=== PATIENT | male | born 1950 | race Caucasian/White ===

== ENCOUNTER 2020-08-17 09:01 | Outpatient (REF) | payer OTHER, MEDICARE, SELFPAY ==
[2020-08-17 11:35] LABS: Estimated Average Glucose 154 mg/dL; Microalbum/Creatinine Ratio Ur 8.7 ug/mg cr
[2020-08-17 11:56] LABS: Alanine Aminotransferase 21 U/L (0-40); Albumin Level 4.5 g/dL (3.5-5.0); Alkaline Phosphatase 38 U/L (39-117); Anion Gap 12 (12-20); Aspartate Amino Transferase 23 U/L (5-37); Bilirubin Total 0.4 mg/dL (0.0-1.0); Blood Urea Nitrogen 23 mg/dL (9-16); Carbon Dioxide 29 mmol/L (22-29); Chloride 106 mmol/L (96-108); Cholesterol 136 mg/dL; Estimated Glomerular Filt Rate 59; Glucose Fasting 134 mg/dL (60-99); HDL Cholesterol 33 mg/dL; LDL Cholesterol Calculated 76 mg/dl; Potassium 4.7 mmol/l (3.3-5.1); Sodium 142 mmol/L (135-145); Triglycerides 135 mg/dL
== END 2020-08-17 09:02 | disposition home or self-care (01) ==
LOC: HO.HMGCLDS 09:01
PROVIDERS: PCP Internal Medicine; Visit Provider Internal Medicine
DX: E55.9 Vitamin D deficiency, unspecified (principal); E78.2 Mixed hyperlipidemia; F41.9 Anxiety disorder, unspecified; E11.9 Type 2 diabetes mellitus without complications; I25.5 Ischemic cardiomyopathy; I10 Essential (primary) hypertension
CPT/HCPCS: 80053; 80061; 82043; 83036

== ENCOUNTER 2021-07-14 09:10 | Outpatient (REF) | payer OTHER, MEDICARE, SELFPAY ==
[2021-07-14 11:44] LABS: Hematocrit 40.9 % (42-52); Hemoglobin 13.5 g/dl (14.0-18.0); Mean Corpuscular Hemoglobin 28.8 pg (27.0-33.0); Mean Corpuscular Volume 87.4 fL (80-98); Platelet Count 220 X10*3/uL (160-400); Red Blood Count 4.68 X10*6/uL (4.60-5.80); White Blood Count 5.4 X10*3/uL (4.8-10.8)
[2021-07-14 12:02] LABS: Estimated Average Glucose 197 mg/dL; Hemoglobin A1c % 8.5 %
[2021-07-14 12:11] LABS: Creatinine Urine 141.66 mg/dL; Microalbum/Creatinine Ratio Ur 76.2 ug/mg cr
[2021-07-14 12:16] LABS: Alanine Aminotransferase 21 U/L (0-40); Albumin Level 4.4 g/dL (3.5-5.0); Alkaline Phosphatase 43 U/L (39-117); Anion Gap 14 (12-20); Aspartate Amino Transferase 27 U/L (5-37); Bilirubin Total 0.5 mg/dL (0.0-1.0); Blood Urea Nitrogen 26 mg/dL (9-16); Calcium 9.7 mg/dL (8.4-10.2); Carbon Dioxide 28 mmol/L (22-29); Chloride 105 mmol/L (96-108); Cholesterol 137 mg/dL; Estimated Glomerular Filt Rate 49; Glucose Fasting 131 mg/dL (60-99); HDL Cholesterol 29 mg/dL; LDL Cholesterol Calculated 77 mg/dl; Potassium 4.5 mmol/L (3.3-5.1); Sodium 142 mmol/L (135-145); Total Protein 7.1 g/dL (6.5-8.0); Triglycerides 158 mg/dL
[2021-07-14 12:40] LABS: Folate 12.3 ng/mL (> or = 4.0); Vitamin B12 188 pg/mL (200-900)
== END 2021-07-14 09:11 | disposition home or self-care (01) ==
LOC: HO.HMGCLDS 09:10
PROVIDERS: PCP Internal Medicine; Visit Provider Internal Medicine
DX: I25.10 Atherosclerotic heart disease of native coronary artery without angina pectoris (principal); K21.9 Gastro-esophageal reflux disease without esophagitis; E11.9 Type 2 diabetes mellitus without complications; I10 Essential (primary) hypertension; E78.5 Hyperlipidemia, unspecified
CPT/HCPCS: 36415; 80053; 80061; 82043; 82607; 82746; 83036; 85027

== ENCOUNTER → 2021-08-11 09:08 | Outpatient (BNVA) | payer OTHER, MEDICARE, SELFPAY | PROVIDERS: PCP Internal Medicine; Referring Provider Internal Medicine; Visit Provider Surgery ==

== ENCOUNTER 2021-10-20 09:12 | Outpatient (REF) | payer OTHER, MEDICARE, SELFPAY ==
[2021-10-20 11:32] LABS: Hematocrit 40.8 % (42.0-52.0); Hemoglobin 13.5 g/dl (14.0-18.0); Mean Corpuscular HGB Conc 33.1 g/dl (31.0-36.0); Mean Corpuscular Hemoglobin 29.3 pg (27.0-33.0); Mean Corpuscular Volume 88.5 fL (80.0-98.0); Mean Platelet Volume 10.3 fL (9.4-12.4); Platelet Count 218 X10*3/uL (160-400); Red Blood Count 4.61 X10*6/uL (4.60-5.80); White Blood Count 7.1 X10*3/uL (4.8-10.8)
[2021-10-20 11:40] LABS: Estimated Average Glucose 174 mg/dL; Hemoglobin A1c % 7.7 %
[2021-10-20 12:04] LABS: Alanine Aminotransferase 24 U/L (0-40); Albumin Level 4.4 g/dL (3.5-5.0); Alkaline Phosphatase 44 U/L (39-117); Anion Gap 12 (12-20); Aspartate Amino Transferase 22 U/L (5-37); Bilirubin Total 0.4 mg/dL (0.0-1.0); Blood Urea Nitrogen 35 mg/dL (9-16); Calcium 10.4 mg/dL (8.4-10.2); Carbon Dioxide 30 mmol/L (22-29); Chloride 106 mmol/L (96-108); Cholesterol 154 mg/dL; Estimated Glomerular Filt Rate 40; Glucose Fasting 128 mg/dL (60-99); HDL Cholesterol 31 mg/dL; LDL Cholesterol Calculated 80 mg/dl; Potassium 4.7 mmol/L (3.3-5.1); Sodium 143 mmol/L (135-145); Total Protein 7.1 g/dL (6.5-8.0); Triglycerides 219 mg/dL
== END 2021-10-20 09:13 | disposition home or self-care (01) ==
LOC: HO.HMGCLDS 09:12
PROVIDERS: PCP Internal Medicine; Visit Provider Internal Medicine
DX: E11.9 Type 2 diabetes mellitus without complications (principal); E78.5 Hyperlipidemia, unspecified; I10 Essential (primary) hypertension; I25.10 Atherosclerotic heart disease of native coronary artery without angina pectoris
CPT/HCPCS: 36415; 80053; 80061; 83036; 85027

== ENCOUNTER 2022-01-07 15:15 | Outpatient (REF) | payer OTHER, MEDICARE, SELFPAY ==
[2022-01-07 16:47] LABS: Anion Gap 12 (12-20); Blood Urea Nitrogen 31 mg/dL (9-16); Calcium 10.3 mg/dL (8.4-10.2); Carbon Dioxide 30 mmol/L (22-29); Chloride 104 mmol/L (96-108); Estimated Glomerular Filt Rate 46; Glucose Random 113 mg/dL (60-115); Potassium 4.6 mmol/L (3.3-5.1); Sodium 141 mmol/L (135-145)
[2022-01-07 17:23] LABS: Folate 13.2 ng/mL (> or = 4.0); Vitamin B12 541 pg/mL (200-900)
== END 2022-01-07 15:16 | disposition home or self-care (01) ==
LOC: HO.HMGCLDS 15:15
PROVIDERS: Internal Medicine; Visit Provider Physician Assistant Medical
DX: I25.5 Ischemic cardiomyopathy (principal); I10 Essential (primary) hypertension
CPT/HCPCS: 36415; 80048; 82607; 82746

== ENCOUNTER 2022-03-24 08:52 | Outpatient (REF) | payer MEDICARE, SELFPAY ==
[2022-03-24 11:33] LABS: Hematocrit 41.3 % (42.0-52.0); Hemoglobin 13.1 g/dl (14.0-18.0); Mean Corpuscular HGB Conc 31.7 g/dl (31.0-36.0); Mean Corpuscular Hemoglobin 28.5 pg (27.0-33.0); Mean Corpuscular Volume 89.8 fL (80.0-98.0); Mean Platelet Volume 10.3 fL (9.4-12.4); Platelet Count 205 X10*3/uL (160-400); Red Cell Distribution Width 14.2 % (11.0-16.0); White Blood Count 5.3 X10*3/uL (4.8-10.8)
[2022-03-24 11:41] LABS: Estimated Average Glucose 163 mg/dL; Hemoglobin A1c % 7.3 %
[2022-03-24 11:47] LABS: Alanine Aminotransferase 22 U/L (0-40); Albumin Level 4.3 g/dL (3.5-5.0); Alkaline Phosphatase 37 U/L (39-117); Anion Gap 14 (12-20); Aspartate Amino Transferase 24 U/L (5-37); Bilirubin Total 0.5 mg/dL (0.0-1.0); Blood Urea Nitrogen 28 mg/dL (9-16); Calcium 9.5 mg/dL (8.4-10.2); Carbon Dioxide 24 mmol/L (22-29); Chloride 110 mmol/L (96-108); Cholesterol 139 mg/dL; Estimated Glomerular Filt Rate 51; Glucose Fasting 121 mg/dL (60-99); HDL Cholesterol 31 mg/dL; LDL Cholesterol Calculated 76 mg/dl; Potassium 4.7 mmol/L (3.3-5.1); Sodium 143 mmol/L (135-145); Triglycerides 162 mg/dL
[2022-03-24 12:01] LABS: Creatinine Urine 156.68 mg/dL; Microalbum/Creatinine Ratio Ur 24.8 ug/mg cr
== END 2022-03-24 08:53 | disposition home or self-care (01) ==
LOC: HO.HMGCLDS 08:52
PROVIDERS: PCP Internal Medicine; Visit Provider Internal Medicine
DX: E11.9 Type 2 diabetes mellitus without complications (principal); E78.5 Hyperlipidemia, unspecified; I10 Essential (primary) hypertension
CPT/HCPCS: 36415; 80053; 80061; 82043; 83036; 85027

== ENCOUNTER 2022-06-09 13:57 | Outpatient (REF) | payer MEDICARE, SELFPAY ==
[2022-06-09 16:25] LABS: MANUAL DIFF FLAG NO
[2022-06-09 16:29] LABS: Basophils Percent Auto 0.7 % (0-2); Eosinophils Absolute Auto 0.2 X10*3/uL (0.0-0.4); Hematocrit 36.1 % (42.0-52.0); Hemoglobin 11.8 g/dl (14.0-18.0); Imm Gran Abs Auto 0.02 X10*3/uL (0.00-0.03); Imm Gran Pct Auto 0.4 % (0.0-0.4); Lymphocytes Absolute Auto 1.5 X10*3/uL (1.2-4.9); Lymphocytes Percent Auto 27.2 % (20-40); Mean Corpuscular HGB Conc 32.7 g/dl (31.0-36.0); Mean Corpuscular Volume 85.5 fL (80.0-98.0); Mean Platelet Volume 9.8 fL (9.4-12.4); Monocytes Absolute Auto 0.6 X10*3/uL (0.1-1.2); Monocytes Percent Auto 9.7 % (2-11); Neutrophils Absolute Auto 3.4 x10*3/uL (2.0-8.3); Platelet Count 193 X10*3/uL (160-400); Red Blood Count 4.22 X10*6/uL (4.60-5.80); Red Cell Distribution Width 15.3 % (11.0-16.0); White Blood Count 5.7 X10*3/uL (4.8-10.8)
[2022-06-09 16:38] LABS: Anion Gap 15 (12-20); Blood Urea Nitrogen 39 mg/dL (9-16); Calcium 9.3 mg/dL (8.4-10.2); Carbon Dioxide 27 mmol/L (22-29); Chloride 102 mmol/L (96-108); Estimated Glomerular Filt Rate 39; Glucose Random 215 mg/dL (60-115); Potassium 4.3 mmol/L (3.3-5.1); Sodium 140 mmol/L (135-145)
[2022-06-09 16:53] LABS: B Type Natriuretic Peptide 171 pg/mL (<100)
== END 2022-06-09 13:58 | disposition home or self-care (01) ==
LOC: HO.HMGCLDS 13:57
PROVIDERS: PCP Internal Medicine; Visit Provider Internal Medicine
DX: I25.10 Atherosclerotic heart disease of native coronary artery without angina pectoris (principal); I25.5 Ischemic cardiomyopathy; E11.9 Type 2 diabetes mellitus without complications
CPT/HCPCS: 36415; 80048; 83880; 85025

== ENCOUNTER 2022-07-15 08:22 | Outpatient (REF) | payer MEDICARE, SELFPAY ==
[2022-07-15 12:50] LABS: Creatinine Urine 93.81 mg/dL; Estimated Average Glucose 157 mg/dL; Hemoglobin A1c % 7.1 %; Microalbum/Creatinine Ratio Ur 11.7 ug/mg cr; TSH reflex Free T4 1.14 uIU/mL (0.32-4.0)
[2022-07-15 13:04] LABS: Alanine Aminotransferase 28 U/L (0-40); Albumin Level 4.6 g/dL (3.5-5.0); Alkaline Phosphatase 51 U/L (39-117); Anion Gap 22 (12-20); Aspartate Amino Transferase 32 U/L (5-37); Bilirubin Total 0.5 mg/dL (0.0-1.0); Blood Urea Nitrogen 38 mg/dL (9-16); Calcium 10.1 mg/dL (8.4-10.2); Carbon Dioxide 22 mmol/L (22-29); Chloride 104 mmol/L (96-108); Cholesterol 155 mg/dL; Estimated Glomerular Filt Rate 36; Glucose Fasting 175 mg/dL (60-99); HDL Cholesterol 32 mg/dL; LDL Cholesterol Calculated 90 mg/dl; Potassium 4.4 mmol/L (3.3-5.1); Sodium 144 mmol/L (135-145); Total Protein 7.6 g/dL (6.5-8.0); Triglycerides 166 mg/dL
[2022-07-15 13:16] LABS: Folate 9.7 ng/mL (> or = 4.0); Vitamin B12 849 pg/mL (200-900)
== END 2022-07-15 08:23 | disposition home or self-care (01) ==
LOC: HO.HMGCLDS 08:22
PROVIDERS: PCP Internal Medicine; Visit Provider Internal Medicine
DX: E11.9 Type 2 diabetes mellitus without complications (principal); E78.5 Hyperlipidemia, unspecified; I10 Essential (primary) hypertension; R41.3 Other amnesia
CPT/HCPCS: 36415; 80053; 80061; 82043; 82607; 82746; 83036; 84443

== ENCOUNTER 2022-08-16 13:01 | Outpatient (REF) | payer MEDICARE, SELFPAY ==
[2022-08-16 14:36] LABS: Anion Gap 16 (12-20); Blood Urea Nitrogen 36 mg/dL (9-16); Calcium 9.9 mg/dL (8.4-10.2); Carbon Dioxide 28 mmol/L (22-29); Chloride 102 mmol/L (96-108); Estimated Glomerular Filt Rate 40; Glucose Random 185 mg/dL (60-115); Potassium 4.5 mmol/L (3.3-5.1); Sodium 141 mmol/L (135-145)
== END 2022-08-16 13:02 | disposition home or self-care (01) ==
LOC: HO.HMGCLDS 13:01
PROVIDERS: PCP Internal Medicine; Referring Provider Internal Medicine; Visit Provider Nurse Practitioner Gerontology
DX: I25.5 Ischemic cardiomyopathy (principal); E78.5 Hyperlipidemia, unspecified
CPT/HCPCS: 36415; 80048

== ENCOUNTER 2022-10-03 12:18 | Outpatient (REF) | payer MEDICARE, SELFPAY ==
[2022-10-03 16:55] LABS: Appearance Urine Clear; Color Urine Yellow; Glucose Urine UA >=1000 mg/dL (Negative); Leukocyte Esterase Urine Negative (Negative); Nitrite Urine Negative (Negative); PH 5.5 (5.0-9.0); UMIC TRIGGER UA YES; Urine Blood Negative (Negative); Urine Ketones Negative (Negative); Urine Protein Negative (Neg-Trace)
[2022-10-03 16:58] LABS: Bacteria Urine None Seen (None Seen); Hyaline Casts Urine 0-2 /LPF (0-2); RBC Urine 0-2 /HPF (0-2); Squamous Epithelial Cell Urine 0-2 /HPF (0-2); WBC Urine 0-5 /HPF (0-5)
[2022-10-03 17:19] LABS: Alanine Aminotransferase 20 U/L (0-40); Albumin Level 4.5 g/dL (3.5-5.0); Alkaline Phosphatase 57 U/L (39-117); Anion Gap 13 (12-20); Aspartate Amino Transferase 26 U/L (5-37); Bilirubin Total 0.4 mg/dL (0.0-1.0); Blood Urea Nitrogen 36 mg/dL (9-16); Calcium 10.1 mg/dL (8.4-10.2); Carbon Dioxide 32 mmol/L (22-29); Chloride 99 mmol/L (96-108); Estimated Glomerular Filt Rate 37; Glucose Random 223 mg/dL (60-115); Potassium 5.1 mmol/L (3.3-5.1); Sodium 139 mmol/L (135-145); Total Protein 7.4 g/dL (6.5-8.0)
[2022-10-04 05:16] LABS: Estimated Average Glucose 229 mg/dL; Hemoglobin A1c % 9.6 %
== END 2022-10-03 12:19 | disposition home or self-care (01) ==
LOC: HO.CHCLDS 12:18
PROVIDERS: Visit Provider Internal Medicine
DX: I25.10 Atherosclerotic heart disease of native coronary artery without angina pectoris (principal); I25.5 Ischemic cardiomyopathy; E11.9 Type 2 diabetes mellitus without complications; R30.0 Dysuria
CPT/HCPCS: 36415; 80053; 81001; 83036; 87086

== ENCOUNTER 2022-10-27 12:24 | Outpatient (REF) | payer MEDICARE, SELFPAY ==
[2022-10-27 14:17] LABS: Mean Corpuscular HGB Conc 31.8 g/dl (31.0-36.0); Mean Corpuscular Hemoglobin 26.5 pg (27.0-33.0); Mean Corpuscular Volume 83.2 fL (80.0-98.0); Mean Platelet Volume 10.5 fL (9.4-12.4); Platelet Count 209 X10*3/uL (160-400); Red Blood Count 5.29 X10*6/uL (4.60-5.80); Red Cell Distribution Width 14.8 % (11.0-16.0); White Blood Count 7.4 X10*3/uL (4.8-10.8)
[2022-10-27 16:51] LABS: Anion Gap 12 (12-20); Blood Urea Nitrogen 32 mg/dL (9-16); Calcium 9.7 mg/dL (8.4-10.2); Carbon Dioxide 30 mmol/L (22-29); Chloride 103 mmol/L (96-108); Estimated Glomerular Filt Rate 40; Glucose Random 152 mg/dL (60-115); Potassium 4.4 mmol/L (3.3-5.1); Sodium 141 mmol/L (135-145)
== END 2022-10-27 12:25 | disposition home or self-care (01) ==
LOC: HO.HMGCLDS 12:24
PROVIDERS: Absent Provider Internal Medicine Hypertension Specialist; PCP Internal Medicine; Visit Provider Internal Medicine Cardiovascular Disease
DX: N18.31 Chronic kidney disease, stage 3a (principal); I25.5 Ischemic cardiomyopathy
CPT/HCPCS: 36415; 80048; 85027

== ENCOUNTER 2022-10-28 08:54 | Outpatient (REF) | payer MEDICARE, SELFPAY ==
[2022-10-28 11:58] LABS: Cholesterol 146 mg/dL; HDL Cholesterol 32 mg/dL; LDL Cholesterol Calculated 73 mg/dl; Triglycerides 205 mg/dL
== END 2022-10-28 08:55 | disposition home or self-care (01) ==
LOC: HO.HMGCLDS 08:54
PROVIDERS: PCP Internal Medicine; Visit Provider Nurse Practitioner Gerontology
DX: I25.5 Ischemic cardiomyopathy (principal); E78.5 Hyperlipidemia, unspecified
CPT/HCPCS: 36415; 80061

== ENCOUNTER 2022-12-09 09:02 | Outpatient (REF) | payer MEDICARE, SELFPAY ==
[2022-12-09 11:52] LABS: Estimated Average Glucose 214 mg/dL; Hemoglobin A1c % 9.1 %
== END 2022-12-09 09:03 | disposition home or self-care (01) ==
LOC: HO.HMGCLDS 09:02
PROVIDERS: PCP Internal Medicine; Visit Provider Nurse Practitioner Gerontology
DX: E11.51 Type 2 diabetes mellitus with diabetic peripheral angiopathy without gangrene (principal)
CPT/HCPCS: 36415; 83036

== ENCOUNTER 2023-01-03 12:31 | Outpatient (REF) | payer MEDICARE, SELFPAY ==
[2023-01-03 13:50] LABS: MANUAL DIFF FLAG NO
[2023-01-03 13:56] LABS: Basophils Absolute Auto 0.1 X10*3/uL (0.0-0.2); Basophils Percent Auto 0.8 % (0-2); Eosinophils Absolute Auto 0.2 X10*3/uL (0.0-0.4); Eosinophils Percent Auto 2.9 % (0-4); Hematocrit 43.8 % (42.0-52.0); Hemoglobin 14.3 g/dl (14.0-18.0); Imm Gran Abs Auto 0.02 X10*3/uL (0.00-0.03); Imm Gran Pct Auto 0.3 % (0.0-0.4); Lymphocytes Absolute Auto 1.3 X10*3/uL (1.2-4.9); Lymphocytes Percent Auto 18.7 % (20-40); Mean Corpuscular HGB Conc 32.6 g/dl (31.0-36.0); Mean Corpuscular Volume 82.6 fL (80.0-98.0); Mean Platelet Volume 9.7 fL (9.4-12.4); Monocytes Absolute Auto 0.9 X10*3/uL (0.1-1.2); Neutrophils Absolute Auto 4.7 x10*3/uL (2.0-8.3); Neutrophils Percent Auto 65.3 % (45-73); Platelet Count 237 X10*3/uL (160-400); Red Cell Distribution Width 14.7 % (11.0-16.0); White Blood Count 7.2 X10*3/uL (4.8-10.8)
[2023-01-03 14:06] LABS: Prothrombin Time 10.9 SEC (10.0-13.1)
[2023-01-03 14:35] LABS: Anion Gap 16 (12-20); Blood Urea Nitrogen 30 mg/dL (9-16); Calcium 9.4 mg/dL (8.4-10.2); Carbon Dioxide 23 mmol/L (22-29); Chloride 106 mmol/L (96-108); Estimated Glomerular Filt Rate 46; Glucose Random 199 mg/dL (60-115); Potassium 4.4 mmol/L (3.3-5.1); Sodium 141 mmol/L (135-145)
== END 2023-01-03 12:32 | disposition home or self-care (01) ==
LOC: HO.HMGCLDS 12:31
PROVIDERS: PCP Internal Medicine; Visit Provider Internal Medicine Cardiovascular Disease
DX: Z01.818 Encounter for other preprocedural examination (principal); I25.5 Ischemic cardiomyopathy; E11.51 Type 2 diabetes mellitus with diabetic peripheral angiopathy without gangrene; I50.23 Acute on chronic systolic (congestive) heart failure
CPT/HCPCS: 36415; 80048; 85025; 85610

== ENCOUNTER → 2023-02-02 11:07 | Outpatient (BNVA) | payer MEDICARE, SELFPAY | PROVIDERS: PCP Internal Medicine; Visit Provider Surgery | DX: K42.9 Umbilical hernia without obstruction or gangrene (principal) | CPT/HCPCS: 99212 ==

== ENCOUNTER 2023-02-06 08:32 | Outpatient (REF) | payer MEDICARE, SELFPAY ==
[2023-02-06 11:17] LABS: MANUAL DIFF FLAG NO
[2023-02-06 11:44] LABS: Basophils Absolute Auto 0.1 X10*3/uL (0.0-0.2); Basophils Percent Auto 0.9 % (0-2); Eosinophils Absolute Auto 0.2 X10*3/uL (0.0-0.4); Eosinophils Percent Auto 3.1 % (0-4); Hematocrit 43.9 % (42.0-52.0); Hemoglobin 14.4 g/dl (14.0-18.0); Imm Gran Abs Auto 0.04 X10*3/uL (0.00-0.03); Imm Gran Pct Auto 0.5 % (0.0-0.4); Lymphocytes Absolute Auto 1.6 X10*3/uL (1.2-4.9); Lymphocytes Percent Auto 21.4 % (20-40); Mean Corpuscular HGB Conc 32.8 g/dl (31.0-36.0); Mean Corpuscular Hemoglobin 27.8 pg (27.0-33.0); Mean Corpuscular Volume 84.7 fL (80.0-98.0); Mean Platelet Volume 9.8 fL (9.4-12.4); Monocytes Percent Auto 12.4 % (2-11); Neutrophils Absolute Auto 4.7 x10*3/uL (2.0-8.3); Neutrophils Percent Auto 61.7 % (45-73); Platelet Count 237 X10*3/uL (160-400); Red Blood Count 5.18 X10*6/uL (4.60-5.80); Red Cell Distribution Width 14.1 % (11.0-16.0); White Blood Count 7.7 X10*3/uL (4.8-10.8)
[2023-02-06 11:45] LABS: Estimated Average Glucose 189 mg/dL; Hemoglobin A1c % 8.2 %
[2023-02-06 12:01] LABS: Alanine Aminotransferase 25 U/L (0-40); Albumin Level 4.5 g/dL (3.5-5.0); Alkaline Phosphatase 56 U/L (39-117); Anion Gap 14 (12-20); Aspartate Amino Transferase 24 U/L (5-37); Bilirubin Total 0.6 mg/dL (0.0-1.0); Blood Urea Nitrogen 52 mg/dL (9-16); Calcium 9.8 mg/dL (8.4-10.2); Carbon Dioxide 27 mmol/L (22-29); Chloride 103 mmol/L (96-108); Estimated Glomerular Filt Rate 34; Glucose Fasting 199 mg/dL (60-99); Potassium 4.9 mmol/L (3.3-5.1); Sodium 139 mmol/L (135-145); Total Protein 7.3 g/dL (6.5-8.0)
== END 2023-02-06 08:33 | disposition home or self-care (01) ==
LOC: HO.HMGCLDS 08:32
PROVIDERS: PCP Internal Medicine; Visit Provider Internal Medicine
DX: I25.5 Ischemic cardiomyopathy (principal); E11.9 Type 2 diabetes mellitus without complications; I10 Essential (primary) hypertension
CPT/HCPCS: 36415; 80053; 83036; 85025

== ENCOUNTER 2023-03-20 09:18 | Outpatient (REF) | payer MEDICARE, SELFPAY ==
[2023-03-20 11:30] LABS: Appearance Urine Clear; Color Urine Yellow; Glucose Urine UA >=1000 mg/dL (Negative); Leukocyte Esterase Urine Negative (Negative); Nitrite Urine Negative (Negative); PH 5.5 (5.0-9.0); Specific Gravity - Urine 1.025 (1.005-1.025); UMIC TRIGGER UA YES; Urine Blood Negative (Negative); Urine Ketones Negative (Negative); Urine Protein Negative (Neg-Trace)
[2023-03-20 11:35] LABS: Bacteria Urine None Seen (None Seen); Hyaline Casts Urine 0-2 /LPF (0-2); RBC Urine 0-2 /HPF (0-2); Squamous Epithelial Cell Urine 0-2 /HPF (0-2); WBC Urine 0-5 /HPF (0-5)
[2023-03-20 11:53] LABS: Anion Gap 11 (12-20); Blood Urea Nitrogen 34 mg/dL (9-16); Carbon Dioxide 30 mmol/L (22-29); Chloride 107 mmol/L (96-108); Estimated Glomerular Filt Rate 49; Glucose Random 210 mg/dL (60-115); Potassium 4.7 mmol/L (3.3-5.1); Sodium 143 mmol/L (135-145)
[2023-03-20 11:54] LABS: Alanine Aminotransferase 22 U/L (0-40); Albumin Level 4.1 g/dL (3.5-5.0); Alkaline Phosphatase 71 U/L (39-117); Anion Gap 10 (12-20); Aspartate Amino Transferase 25 U/L (5-37); Bilirubin Total 0.4 mg/dL (0.0-1.0); Blood Urea Nitrogen 35 mg/dL (9-16); Calcium 9.9 mg/dL (8.4-10.2); Carbon Dioxide 31 mmol/L (22-29); Chloride 107 mmol/L (96-108); Estimated Glomerular Filt Rate 49; Glucose Fasting 209 mg/dL (60-99); Potassium 4.6 mmol/L (3.3-5.1); Sodium 143 mmol/L (135-145); Total Protein 6.9 g/dL (6.5-8.0)
[2023-03-20 12:13] LABS: Creatinine Urine 102.27 mg/dL; Protein/Creatinine Ratio, Ur 0.11 (<0.2); Total Protein Urine Random 11 mg/dL (<12)
== END 2023-03-20 09:19 | disposition home or self-care (01) ==
LOC: HO.HMGCLDS 09:18
PROVIDERS: Internal Medicine Hypertension Specialist; PCP Internal Medicine; Visit Provider Internal Medicine
DX: N18.32 Chronic kidney disease, stage 3b (principal)
CPT/HCPCS: 36415; 80048; 80053; 81001; 84156

== ENCOUNTER 2023-06-20 08:37 | Outpatient (REF) | payer MEDICARE, SELFPAY ==
[2023-06-20 11:24] LABS: MANUAL DIFF FLAG NO
[2023-06-20 11:28] LABS: Basophils Absolute Auto 0.1 X10*3/uL (0.0-0.2); Basophils Percent Auto 0.8 % (0-2); Eosinophils Absolute Auto 0.2 X10*3/uL (0.0-0.4); Hematocrit 43.6 % (42.0-52.0); Hemoglobin 14.2 g/dl (14.0-18.0); Imm Gran Abs Auto 0.02 X10*3/uL (0.00-0.03); Imm Gran Pct Auto 0.3 % (0.0-0.4); Lymphocytes Absolute Auto 1.9 X10*3/uL (1.2-4.9); Lymphocytes Percent Auto 28.8 % (20-40); Mean Corpuscular HGB Conc 32.6 g/dl (31.0-36.0); Mean Corpuscular Hemoglobin 27.8 pg (27.0-33.0); Mean Corpuscular Volume 85.5 fL (80.0-98.0); Mean Platelet Volume 9.8 fL (9.4-12.4); Monocytes Absolute Auto 0.9 X10*3/uL (0.1-1.2); Monocytes Percent Auto 14.1 % (2-11); Neutrophils Absolute Auto 3.5 x10*3/uL (2.0-8.3); Platelet Count 240 X10*3/uL (160-400); White Blood Count 6.6 X10*3/uL (4.8-10.8)
[2023-06-20 12:21] LABS: Alanine Aminotransferase 27 U/L (0-40); Albumin Level 4.3 g/dL (3.5-5.0); Alkaline Phosphatase 43 U/L (39-117); Anion Gap 13 (12-20); Aspartate Amino Transferase 36 U/L (5-37); Bilirubin Total 0.5 mg/dL (0.0-1.0); Blood Urea Nitrogen 39 mg/dL (9-16); Calcium 9.9 mg/dL (8.4-10.2); Carbon Dioxide 27 mmol/L (22-29); Chloride 104 mmol/L (96-108); Cholesterol 154 mg/dL (<200); Estimated Glomerular Filt Rate 35; Glucose Fasting 93 mg/dL (60-99); HDL Cholesterol 35 mg/dL (>40); LDL Cholesterol Calculated 79 mg/dL (<100); Potassium 4.3 mmol/L (3.3-5.1); Sodium 140 mmol/L (135-145); Total Protein 7.4 g/dL (6.5-8.0); Triglycerides 201 mg/dL (<150)
[2023-06-20 12:31] LABS: Estimated Average Glucose 163 mg/dL; Hemoglobin A1c % 7.3 % (<6.0)
[2023-06-20 12:53] LABS: Creatinine Urine 155.87 mg/dL; Microalbum/Creatinine Ratio Ur 8.9 ug/mg cr (<30)
[2023-06-20 15:43] LABS: Folate 7.4 ng/mL (> or = 4.0); Vitamin B12 > 2000 pg/mL (200-900)
== END 2023-06-20 08:38 | disposition home or self-care (01) ==
LOC: HO.HMGCLDS 08:37
PROVIDERS: PCP Internal Medicine; Visit Provider Internal Medicine
DX: N18.30 Chronic kidney disease, stage 3 unspecified (principal); I25.5 Ischemic cardiomyopathy; E11.9 Type 2 diabetes mellitus without complications; I25.10 Atherosclerotic heart disease of native coronary artery without angina pectoris; E78.5 Hyperlipidemia, unspecified; I10 Essential (primary) hypertension
CPT/HCPCS: 36415; 80053; 80061; 82043; 82570; 82607; 82746; 83036; 85025

== ENCOUNTER 2023-06-22 11:07 | Outpatient (AMB) | payer MEDICARE, SELFPAY ==
[2023-06-22 11:18] VITALS: BP 106/64; PULSE 80; O2SAT 97; BMI 29.1
--- NOTE | 2023-06-22 11:18 | A.OFFPC_ITS ---
Vital Signs 06/22/23 11:18 Height 5 ft 7 in Weight 186 lb BMI 29.1 BP 106/64 Blood Pressure Location Lt brachial Position Sitting Pulse 80 Pulse Source Pulse Oximeter Pulse Oximetry (%) 97 Oxygen Delivery Method Room Air Intake Visit Reasons: 3 month follow up Intake Note: Pt is here today for 3 months follow up visit on DM. Pt states that he has been having problem with his stomach lately. Pt also states that yesterday and this morning when he was urinating he had burning sensation. Allergies bee pollen [Bee Stings] Allergy (Mild, Verified 06/22/23 11:21) SWELLING ibuprofen [From Motrin] Allergy (Mild, Verified 06/22/23 11:21) RASH Medication List - Last Reconciled 06/22/23 by Lyric Witt MD aspirin 81 mg PO DAILY blood sugar diagnostic (FreeStyle Lite Strips) test blood sugar twice a day bupropion HCl 150 mg PO DAILY carvedilol 25 mg (2 x 12.5 mg) PO BID 90 days cholecalciferol (vitamin D3) 25 mcg PO DAILY cyanocobalamin (vitamin B-12) 1,000 mcg PO DAILY dapagliflozin propanediol (Farxiga) 10 mg PO DAILY donepezil 5 mg PO DAILY doxycycline hyclate 100 mg PO BID dulaglutide (Trulicity) 3 mg (0.5 mL) subcut QWEEK fenofibrate nanocrystallized 145 mg PO BEDTIME flash glucose scanning reader (OneMedNetStyle Izabel 2 [place]) To test blood sugar flash glucose sensor (FreeStyle Izabel 2 Sensor kit) As directed to test blood sugar 4-6 times per day furosemide TAKE 1 TABLET BY MOUTH DAILY insulin degludec (Tresiba FlexTouch U-100 insulin) 46 UNITS subcutaneously bedtime; lancets (FreeStyle Lancets) test blood sugar twice a day nitroglycerin (Nitrostat) 0.4 mg sublingual Q5M PRN pantoprazole 20 mg PO BEDTIME paroxetine HCl 30 mg PO BEDTIME prasugrel 10 mg PO DAILY ranolazine ER 500 mg PO BID rosuvastatin 40 mg PO DAILY sacubitril-valsartan 24-26 mg (Entresto) 1 tab PO BID spironolactone 25 mg PO DAILY ticagrelor (Brilinta) 90 mg PO BID Tobacco use date assessed: 06/22/23 Dental Screening Dental Screen Date: 06/22/23 Did you have a dental visit in the last 12 months?: Yes Did you have a dental problem in the last 6 months where you did not have access to dental care?: No Was dental information given to patient?: Patient has dentist HPI 3 month follow up HPI Details Patient presents for the follow-up of type 2 diabetes, heart failure with reduced ejection fraction, chronic kidney disease stage 4. Patient reports constipation and increased gas and bloating. He denies hematochezia melena. [facility] Medical History Memory loss Dehydration Umbilical hernia Obstructive sleep apnea Depression Hypertension Hyperlipidemia Diabetes DALI on CPAP Ischemic cardiomyopathy CAD (coronary artery disease) Surgical History Hx of LASIK History of carpal tunnel release of both wrists History of cardiac cath History of total left knee replacement History of implantable cardiac defibrillator (ICD) History of colonoscopy Family History Father Lung cancer Diabetes mellitus HTN (hypertension) CVD (cardiovascular disease) Mother Stroke CVD (cardiovascular disease) History of heart attack Mental health disorder Brother No problems noted. Brother Alcoholic Sister No problems noted. Son No problems noted. Daughter No problems noted. Daughter No problems noted. Social History Household Members: Spouse Housing: House Are you a primary home care consultant to a significant other at home: No Do you presently have visiting nurse or other home services: No Alcohol intake: current Alcohol intake frequency: 0-2 drinks per day Alcohol type: beer Patient Tobacco Use Status: Former Tobacco user Quit Date: 2015 Tobacco use type: Cigarette e-Cigarette/Vaping Use: Never Used Current occupational status: retired Cognitive needs: No Hearing needs: Yes Vision needs: No Questionnaire Thrive Questionnaire Date Thrive assessed: 11/01/22 GHAZALA-7 AMB Questionnaire GHAZALA-7 Date GHAZALA - 7 assessed: 11/01/22 Source: Developed by Drs. Kian García, Carola Campos, Mamadou Pearson and colleagues, with an educational trenton from [employer]. Review of Systems Const All systems reviewed & are unremarkable except as noted in HPI and below Reports no additional complaints Eyes Reports no additional complaints ENT Reports no additional complaints Card Reports no additional complaints Resp Reports no additional complaints GI Reports no additional complaints Physical exam (Primary Care) Vital Signs: Last Vital Signs Pulse 80 06/22/23 11:18 BP 106/64 06/22/23 11:18 Pulse Ox 97 06/22/23 11:18 Oxygen Delivery Method Room Air 06/22/23 11:18 BMI result Body Mass Index 29.1 Tobacco/Smoking Status: Tobacco use Status Tobacco use date assessed 06/22/23 06/22/23 11:24 Patient Tobacco Use Status Former Tobacco user 06/22/23 11:24 Tobacco use type Cigarette 06/22/23 11:24 e-Cigarette/Vaping Use Never Used 06/22/23 11:24 Thrive Assessment: Date of Thrive Assessment Date Thrive assessed 11/01/22 06/22/23 11:24 Const General: no acute distress HENMT Head: Yes normal to inspection Mouth: Normal oral and palatal mucosa present Eyes General: appearance normal, both eyes and all related structures Resp Effort & Inspection: normal respiratory effort Auscultation: clear to auscultation bilaterally Cardio Rhythm: regular rhythm Heart sounds: S1 normal heart sound present and S2 normal heart sound present GI Inspection: Yes normal to inspection Palpation (GI): Soft to palpation Percussion: Yes normal to percussion Auscultation: normal bowel sounds Extrem General: Yes no clubbing, cyanosis or edema Assessment and Plan Assessment & Plan (1) Ischemic cardiomyopathy: Comment: f/u Cardiology at [facility], Echo 04/06 EF 30% Code(s): I25.5 - Ischemic cardiomyopathy Plan: Continue current medications and follow-up with Cardiology (2) Diabetes: Code(s): E11.9 - Type 2 diabetes mellitus without complications Plan: A1c is down to 7.3, ADA diet increase exercise discussed with the patient. Humalog according to sliding scale 3 times a day before meals will be added and patient will continue same medications. follow-up in 3 months with a fasting labs before (3) Dysuria: Code(s): R30.0 - Dysuria Plan: Check urine culture (4) CKD (chronic kidney disease) stage 3, GFR 30-59 ml/min: Code(s): N18.30 - Chronic kidney disease, stage 3 unspecified Plan: Monitor renal function avoid NSAIDs and continue Farxiga (5) Hypertension: Code(s): I10 - Essential (primary) hypertension Plan: Continue current medications (6) Hyperlipidemia: Code(s): E78.5 - Hyperlipidemia, unspecified Plan: Continue statin and fenofibrate Orders: Orders Comprehensive [place]. Panel Fast 3 Months E11.9 - Type 2 diabetes mellitus without complications, I25.5 - Ischemic cardiomyopathy, N18.30 - Chronic kidney disease, stage 3 unspecified Microalbumin, Random (w Creat) 3 Months E11.9 - Type 2 diabetes mellitus without complications, I25.5 - Ischemic cardiomyopathy, N18.30 - Chronic kidney disease, stage 3 unspecified Hemoglobin A1c 3 Months E11.9 - Type 2 diabetes mellitus without complications, I25.5 - Ischemic cardiomyopathy, N18.30 - Chronic kidney disease, stage 3 unspec ified Lipid Panel 3 Months E11.9 - Type 2 diabetes mellitus without complications, I25.5 - Ischemic cardiomyopathy, N18.30 - Chronic kidney disease, stage 3 unspecified B Type Natriuretic Peptide 3 Months E11.9 - Type 2 diabetes mellitus without complications, I25.5 - Ischemic cardiomyopathy, N18.30 - Chronic kidney disease, stage 3 unspecified Urine Culture Today R30.0 - Dysuria Medications: New docusate sodium (Colace) 100 mg PO BID 180 caps 2RF insulin lispro (Humalog KwikPen (U-100) Insulin) 10 u for BS >150 10 units (0.1 mL) subcut TID 45 mL 1RF Coding Level of Care Code Est Pt Level 4 (98122) Diagnoses Ischemic cardiomyopathy I25.5 Diabetes E11.9 Dysuria R30.0 CKD (chronic kidney disease) stage 3, GFR 30-59 ml/min N18.30 Hypertension I10 Hyperlipidemia E78.5
== END 2023-06-22 12:11 | disposition home or self-care (01) ==
PROVIDERS: PCP Internal Medicine; Visit Provider Internal Medicine
DX: E11.22 Type 2 diabetes mellitus with diabetic chronic kidney disease (principal); N18.30 Chronic kidney disease, stage 3 unspecified; I25.5 Ischemic cardiomyopathy; I12.9 Hypertensive chronic kidney disease with stage 1 through stage 4 chronic kidney disease, or unspecified chronic kidney disease; R30.0 Dysuria; E78.5 Hyperlipidemia, unspecified
CPT/HCPCS: 99214

== ENCOUNTER 2023-06-22 11:55 | Outpatient (REF) | payer MEDICARE, SELFPAY | END 2023-06-22 11:56 | disposition home or self-care (01) | LOC: HO.HMGCLDS 11:55 | PROVIDERS: PCP Internal Medicine; Visit Provider Internal Medicine | DX: R30.0 Dysuria (principal) | CPT/HCPCS: 87086 ==

== ENCOUNTER 2023-07-12 12:24 | Outpatient (AMB) | payer MEDICARE, SELFPAY ==
[2023-07-12 12:29] VITALS: BP 112/64; PULSE 76; O2SAT 98; BMI 29.3
--- NOTE | 2023-07-12 12:29 | A.OFFPC_ITS ---
Vital Signs 07/12/23 12:29 Height 5 ft 7 in Weight 187 lb BMI 29.3 BP 112/64 Blood Pressure Location Lt brachial Position Sitting Pulse 76 Pulse Source Pulse Oximeter Pulse Oximetry (%) 98 Oxygen Delivery Method Room Air Intake Visit Reasons: Discuss Sugar Levels Intake Note: Pt is here today for a follow up visit on DM. Allergies bee pollen [Bee Stings] Allergy (Mild, Verified 07/12/23 12:32) SWELLING ibuprofen [From Motrin] Allergy (Mild, Verified 07/12/23 12:32) RASH Medication List - Last Reconciled 07/12/23 by Lyric Witt MD aspirin 81 mg PO DAILY blood sugar diagnostic (FreeStyle Lite Strips) test blood sugar twice a day bupropion HCl 150 mg PO DAILY carvedilol 25 mg (2 x 12.5 mg) PO BID 90 days cholecalciferol (vitamin D3) 25 mcg PO DAILY cyanocobalamin (vitamin B-12) 1,000 mcg PO DAILY dapagliflozin propanediol (Farxiga) 10 mg PO DAILY docusate sodium (Colace) 100 mg PO BID donepezil 5 mg PO DAILY dulaglutide (Trulicity) 3 mg (0.5 mL) subcut QWEEK fenofibrate nanocrystallized 145 mg PO BEDTIME flash glucose scanning reader (QR WildStyle Izabel 2 [place]) To test blood sugar flash glucose sensor (FreeStyle Izabel 2 Sensor kit) As directed to test blood sugar 4-6 times per day furosemide TAKE 1 TABLET BY MOUTH DAILY insulin degludec (Tresiba FlexTouch U-100 insulin) 46 UNITS subcutaneously be dtime; insulin lispro (Humalog KwikPen (U-100) Insulin) 10 units (0.1 mL) subcut TID lancets (FreeStyle Lancets) test blood sugar twice a day nitroglycerin (Nitrostat) 0.4 mg sublingual Q5M PRN pantoprazole 20 mg PO BEDTIME paroxetine HCl 30 mg PO BEDTIME prasugrel 10 mg PO DAILY ranolazine ER 500 mg PO BID rosuvastatin 40 mg PO DAILY sacubitril-valsartan 24-26 mg (Entresto) 1 tab PO BID spironolactone 25 mg PO DAILY ticagrelor (Brilinta) 90 mg PO BID Tobacco use date assessed: 06/22/23 HPI Discuss Sugar Levels HPI Details Patient presents for the follow-up. he reports fluctuating blood glucose in the morning between 80-250. Patient noticed that his blood glucose drops after physical activity. He reports abdominal discomfort decreased appetite and nausea but no vomiting since increase the dose of Trulicity. [facility] Medical History Memory loss Dehydration Umbilical hernia Obstructive sleep apnea Depression Hypertension Hyperlipidemia Diabetes DALI on CPAP Ischemic cardiomyopathy CAD (coronary artery disease) Surgical History Hx of LASIK History of carpal tunnel release of both wrists History of cardiac cath History of total left knee replacement History of implantable cardiac defibrillator (ICD) History of colonoscopy Family History Father Lung cancer Diabetes mellitus HTN (hypertension) CVD (cardiovascular disease) Mother Stroke CVD (cardiovascular disease) History of heart attack Mental health disorder Brother No problems noted. Brother Alcoholic Sister No problems noted. Son No problems noted. Daughter No problems noted. Daughter No problems noted. Social History Household Members: Spouse Housing: House Are you a primary care coordination manager to a significant other at home: No Do you presently have visiting nurse or other home services: No Alcohol intake: current Alcohol intake frequency: 0-2 drinks per day Alcohol type: beer Patient Tobacco Use Status: Former Tobacco user Quit Date: 2015 Tobacco use type: Cigarette e-Cigarette/Vaping Use: Never Used Current occupational status: retired Cognitive needs: No Hearing needs: Yes Vision needs: No Questionnaire Thrive Questionnaire Date Thrive assessed: 11/01/22 GHAZALA-7 AMB Questionnaire GHAZALA-7 Date GHAZALA - 7 assessed: 11/01/22 Source: Developed by Drs. Kian García, Carola Campos, Mamadou Pearson and colleagues, with an educational trenton from [employer]. Review of Systems Const All systems reviewed & are unremarkable except as noted in HPI and below Reports no additional complaints Eyes Reports no additional complaints ENT Reports no additional complaints Card Reports no additional complaints Resp Reports no additional complaints GI Reports no additional complaints Physical exam (Primary Care) Vital Signs: Last Vital Signs Pulse 76 07/12/23 12:29 BP 112/64 07/12/23 12:29 Pulse Ox 98 07/12/23 12:29 Oxygen Delivery Method Room Air 07/12/23 12:29 BMI result Body Mass Index 29.3 Tobacco/Smoking Status: Tobacco use Status Tobacco use date assessed 06/22/23 07/12/23 12:33 Patient Tobacco Use Status Former Tobacco user 07/12/23 12:33 Tobacco use type Cigarette 07/12/23 12:33 e-Cigarette/Vaping Use Never Used 07/12/23 12:33 Thrive Assessment: Date of Thrive Assessment Date Thrive assessed 11/01/22 07/12/23 12:33 Const General: no acute distress Resp Effort & Inspection: normal respiratory effort Auscultation: clear to auscultation bilaterally Cardio Rhythm: regular rhythm Heart sounds: S1 normal heart sound present and S2 normal heart sound present GI Inspection: Yes normal to inspection Palpation (GI): Tenderness to palpation present (GI) in the RUQ; with no rebound tenderness Percussion: Yes normal to percussion Auscultation: normal bowel sounds Assessment and Plan Assessment & Plan (1) Abdominal pain: Comment: RUQ pain Code(s): R10.9 - Unspecified abdominal pain Plan: Obtain abdominal ultrasound to rule gallstones, decrease Trulicity to 1.5 mg (2) Diabetes: Code(s): E11.9 - Type 2 diabetes mellitus without complications Plan: ADA diet regular physical activity discussed with the patient. Trulicity will be lowered to 1.5 mg because of nausea side effect. Patient will continue Tresiba and Humalog before meals with sliding scale. He was advised to record his blood glucose before and after each meal, bedtime, the amount of Humalog the patient takes and food diary. Follow-up in 1 month Orders: Orders US abdomen limited Today R10.9 - Unspecified abdominal pain Medications: New dulaglutide (Trulicity) 1.5 mg (0.5 mL) subcut QWEEK 6 mL 3RF Discontinued dulaglutide (Trulicity) Discontinued Reason: Doctor's Order 3 mg (0.5 mL) subcut QWEEK 6 mL 4RF Coding Level of Care Code Est Pt Level 4 (49545) Diagnoses Abdominal pain R10.9 Diabetes E11.9
== END 2023-07-12 13:34 | disposition home or self-care (01) ==
PROVIDERS: PCP Internal Medicine; Visit Provider Internal Medicine
DX: R10.9 Unspecified abdominal pain (principal); E11.9 Type 2 diabetes mellitus without complications
CPT/HCPCS: 99214

== ENCOUNTER 2023-07-13 09:33 | Outpatient (REF) | payer MEDICARE, SELFPAY ==
--- NOTE | ~2023-07-13 | US_ITS ---
EXAMINATION: US ABDOMEN LIMITED CLINICAL INFORMATION: Unspecified abdominal pain. COMPARISON: Abdominal ultrasound 03/31/2016 TECHNIQUE: Real-time imaging of the right upper quadrant abdominal viscera. FINDINGS: PANCREAS: Normal. LIVER: The liver is normal in size. The liver contour is normal. There is diffuse increased liver parenchymal echogenicity, consistent with hepatic steatosis. No focal hepatic lesion. There is no intrahepatic biliary duct dilatation seen. GALLBLADDER: Thick mobile sludge is seen within the gallbladder. No obvious gallstone is seen. The gallbladder is physiologically distended without evidence of stones, polyps, wall thickening or pericholecystic fluid. COMMON BILE DUCT: Normal in caliber measuring 0.25 cm in diameter. RIGHT KIDNEY: 3.1 x 3.1 x 3.4 cm simple cyst is seen. No imaging follow-up of this finding is recommended. No hydronephrosis. No renal calculi or focal parenchymal lesions. The kidney measures 12.9 cm in maximum dimension. FREE FLUID: None. US/US abdomen limited IMPRESSION: 1. Hepatic steatosis. 2. Thick mobile sludge within the gallbladder without evidence of cholelithiasis.
== END 2023-07-13 09:34 | disposition home or self-care (01) ==
LOC: HO.HMGCX 09:33
PROVIDERS: PCP Internal Medicine; Visit Provider Internal Medicine
DX: R10.9 Unspecified abdominal pain (principal)
CPT/HCPCS: 76705

== ENCOUNTER 2023-07-20 14:04 | Outpatient (AMB) | payer MEDICARE, SELFPAY ==
--- NOTE | 2023-07-20 14:05 | MHC.OFFVIS ---
Intake Intake Visit Reasons: Re-discuss umbilical hernia surgery Intake Note: This patient present for an assessment to re-discuss umbilical hernia repair. Patient c/o; no changes. Hospice Consultant Required: No Accompanied by: Self / Same As Patient Allergies bee pollen [Bee Stings] Allergy (Mild, Verified 07/20/23 14:11) SWELLING ibuprofen [From Motrin] Allergy (Mild, Verified 07/20/23 14:11) RASH HPI Re-discuss umbilical hernia surgery HPI Details 73-year-old male with an umbilical hernia, here to schedule for repair. I have been following him for this since 2020. He had been undergoing workup for his CHF with the administration internship however so he had been putting off his surgery. I had last seen him in the office in January,. He stated that he was ready for umbilical hernia repair and had arrange for him to be seen by his administration internship for final clearance He does state that he seems to periodic pain with his umbilical hernia. He has had a stent placed and a pacemaker done in the past. He had been on Brilinta as well. He has a history of coronary disease, ischemic cardiomyopathy, and chronic kidney disease. [facility] Medical History Memory loss Dehydration Umbilical hernia Obstructive sleep apnea Depression Hypertension Hyperlipidemia Diabetes DALI on CPAP Ischemic cardiomyopathy CAD (coronary artery disease) Surgical History Hx of LASIK History of carpal tunnel release of both wrists History of cardiac cath History of total left knee replacement History of implantable cardiac defibrillator (ICD) History of colonoscopy Family History Father Lung cancer Diabetes mellitus HTN (hypertension) CVD (cardiovascular disease) Mother Stroke CVD (cardiovascular disease) History of heart attack Mental health disorder Brother No problems noted. Brother Alcoholic Sister No problems noted. Son No problems noted. Daughter No problems noted. Daughter No problems noted. Social History Household Members: Spouse Housing: House Are you a primary palliative care specialist to a significant other at home: No Do you presently have visiting nurse or other home services: No Alcohol intake: current Alcohol intake frequency: 0-2 drinks per day Alcohol type: beer Patient Tobacco Use Status: Former Tobacco user Quit Date: 2015 Tobacco use type: Cigarette e-Cigarette/Vaping Use: Never Used Current occupational status: retired Cognitive needs: No Hearing needs: Yes Vision needs: No Review of Systems Const Denies chills and Denies fever(s) Card Denies chest pain, Denies dyspnea and Denies dyspnea on exertion Resp Denies cough, Denies dyspnea and Denies dyspnea on exertion GI Denies hematochezia and Denies change in bowel habits Denies hematuria and Denies difficulty urinating Musc Denies back pain and Denies limited range of motion Neuro Denies focal weakness and Denies convulsions Psych Denies depression and Denies mood swings Physical Exam Const General: comfortable and no acute distress Orientation/consciousness: patient oriented x3 Neck Neck: Yes no lymphadenopathy Resp Auscultation: clear to auscultation bilaterally Cardio Rhythm: regular rhythm GI Other: Umbilical hernia, about 2 cm nontender reducible partially Palpation (GI): Soft to palpation, nontender and no guarding Neuro General: patient oriented x3 Assessment & Plan Assessment & Plan (1) Umbilical hernia: Code(s): K42.9 - Umbilical hernia without obstruction or gangrene (2) CAD (coronary artery disease): Comment: s/p non q wave [place] 2004, follow-up with cardiology Code(s): I25.10 - Atherosclerotic heart disease of [place] coronary artery without angina pectoris Plan: We will need him to be seen and evaluated by his administration internship before proceeding with any surgical intervention. Plan He has an umbilical hernia as described above. He wants to proceed with repair because of his discomfort, pain and tenderness. I reviewed with him the technique of repair with possible mesh placement. I explained the risks including but not limited to bleeding, infections, bowel injury, recurrence, postop pain, heart attack, strokes, as well as the benefits and alternatives. He says he wants to proceed. I reminded him that we will still need to be cleared by his administration internship for repair of his umbilical hernia. I explained to him that he does have significant cardiac history so this will be relevant with regards to his perioperative risks He will call his administration internship with regards to this cardiac eval. He understands that he undergoes surgery, he has told his Brilinta for about 5 days preoperatively. We will also make sure that he undergoes preadmission testing. We will schedule him for this repair of the umbilical hernia once he is cleared. Coding Level of Care Code Est Pt Level 4 (35120) Diagnoses Umbilical hernia K42.9 CAD (coronary artery disease) I25.10
== END 2023-07-20 14:21 | disposition home or self-care (01) ==
PROVIDERS: PCP Internal Medicine; Visit Provider Surgery
DX: K42.9 Umbilical hernia without obstruction or gangrene (principal); I25.10 Atherosclerotic heart disease of native coronary artery without angina pectoris
CPT/HCPCS: 99214

== ENCOUNTER → 2023-07-20 14:04 | Outpatient (BNVA) | payer MEDICARE, SELFPAY | PROVIDERS: PCP Internal Medicine; Visit Provider Surgery | DX: K42.9 Umbilical hernia without obstruction or gangrene (principal); I25.10 Atherosclerotic heart disease of native coronary artery without angina pectoris; I25.2 Old myocardial infarction | CPT/HCPCS: 99212 ==

== ENCOUNTER 2023-08-14 12:32 | Outpatient (AMB) | payer MEDICARE, SELFPAY ==
[2023-08-14 12:34] VITALS: BP 114/60; PULSE 77; O2SAT 100; BMI 29.0
--- NOTE | 2023-08-14 12:34 | A.OFFPC_ITS ---
Vital Signs 08/14/23 12:34 Height 5 ft 7 in Weight 185 lb BMI 29.0 BP 114/60 Blood Pressure Location Lt brachial Position Sitting Pulse 77 Pulse Source Pulse Oximeter Pulse Oximetry (%) 100 Oxygen Delivery Method Room Air Intake Visit Reasons: one month fu Intake Note: Pt is here today for 1 month follow up visit. Allergies bee pollen [Bee Stings] Allergy (Mild, Verified 08/14/23 12:37) SWELLING ibuprofen [From Motrin] Allergy (Mild, Verified 08/14/23 12:37) RASH Medication List - Last Reconciled 08/14/23 by Lyric Witt MD aspirin 81 mg PO DAILY blood sugar diagnostic (FreeStyle Lite Strips) test blood sugar twice a day bupropion HCl 150 mg PO DAILY carvedilol 25 mg (2 x 12.5 mg) PO BID 90 days cholecalciferol (vitamin D3) 25 mcg PO DAILY cyanocobalamin (vitamin B-12) 1,000 mcg PO DAILY dapagliflozin propanediol (Farxiga) 10 mg PO DAILY docusate sodium (Colace) 100 mg PO BID donepezil 5 mg PO DAILY dulaglutide (Trulicity) 1.5 mg (0.5 mL) subcut QWEEK fenofibrate nanocrystallized 145 mg PO BEDTIME flash glucose scanning reader (MelodeoStyle Izabel 2 [place]) To test blood sugar flash glucose sensor (FreeStyle Izabel 2 Sensor kit) As directed to test blood sugar 4-6 times per day furosemide TAKE 1 TABLET IN THE AM, 20 MG IN PM insulin degludec (Tresiba FlexTouch U-100 insulin) 46 UNITS subcutaneously b edtime; insulin lispro (Humalog KwikPen (U-100) Insulin) 10 units (0.1 mL) subcut TID lancets (FreeStyle Lancets) test blood sugar twice a day nitroglycerin (Nitrostat) 0.4 mg sublingual Q5M PRN pantoprazole 20 mg PO BEDTIME paroxetine HCl 30 mg PO BEDTIME prasugrel 10 mg PO DAILY ranolazine ER 500 mg PO BID rosuvastatin 40 mg PO DAILY sacubitril-valsartan 24-26 mg (Entresto) 1 tab PO BID spironolactone 25 mg PO DAILY ticagrelor (Brilinta) 90 mg PO BID Tobacco use date assessed: 06/22/23 HPI one month fu HPI Details Pt c/o chronic L knee pain getting worse for 6 months. Patient had right knee replacement surgery about 10 years ago . He denies any injury or joint swelling. Patient complains of chronic bilateral lateral thighs pain for 2 months worse when laying on either side or when walking longer distance. Type 2 diabetes stable on current medications. [facility] Medical History (Updated 08/14/23 @ 13:38 by Lyric Witt MD) Knee pain, left Memory loss Dehydration Umbilical hernia Obstructive sleep apnea Depression Hypertension Hyperlipidemia Diabetes DALI on CPAP Ischemic cardiomyopathy CAD (coronary artery disease) Surgical History (Updated 08/14/23 @ 13:24 by Lyric Witt MD) Hx of LASIK History of carpal tunnel release of both wrists History of cardiac cath History of total left knee replacement History of implantable cardiac defibrillator (ICD) History of colonoscopy Family History Father Lung cancer Diabetes mellitus HTN (hypertension) CVD (cardiovascular disease) Mother Stroke CVD (cardiovascular disease) History of heart attack Mental health disorder Brother No problems noted. Brother Alcoholic Sister No problems noted. Son No problems noted. Daughter No problems noted. Daughter No problems noted. Social History Household Members: Spouse Housing: House Are you a primary pet care worker to a significant other at home: No Do you presently have visiting nurse or other home services: No Alcohol intake: current Alcohol intake frequency: 0-2 drinks per day Alcohol type: beer Patient Tobacco Use Status: Former Tobacco user Quit Date: 2015 Tobacco use type: Cigarette e-Cigarette/Vaping Use: Never Used Current occupational status: retired Cognitive needs: No Hearing needs: Yes Vision needs: No Questionnaire Thrive Questionnaire Date Thrive assessed: 11/01/22 GHAZALA-7 AMB Questionnaire GHAZALA-7 Date GHAZALA - 7 assessed: 11/01/22 Source: Developed by Drs. Kian García, Carola Camops, Mamadou Pearson and colleagues, with an educational trenton from [employer]. Review of Systems Const All systems reviewed & are unremarkable except as noted in HPI and below Reports no additional complaints Eyes Reports no additional complaints ENT Reports no additional complaints Card Reports no additional complaints Resp Reports no additional complaints GI Reports no additional complaints Reports no additional complaints Physical exam (Primary Care) Vital Signs: Last Vital Signs Pulse 77 08/14/23 12:34 BP 114/60 08/14/23 12:34 Pulse Ox 100 08/14/23 12:34 Oxygen Delivery Method Room Air 08/14/23 12:34 BMI result Body Mass Index 29.0 Tobacco/Smoking Status: Tobacco use Status Tobacco use date assessed 06/22/23 08/14/23 12:34 Patient Tobacco Use Status Former Tobacco user 08/14/23 12:34 Tobacco use type Cigarette 08/14/23 12:34 e-Cigarette/Vaping Use Never Used 08/14/23 12:34 Thrive Assessment: Date of Thrive Assessment Date Thrive assessed 11/01/22 08/14/23 12:34 Const General: no acute distress Resp Effort & Inspection: normal respiratory effort Auscultation: clear to auscultation bilaterally Cardio Rhythm: regular rhythm Heart sounds: S1 normal heart sound present and S2 normal heart sound present GI Inspection: Yes normal to inspection Palpation (GI): Soft to palpation Percussion: Yes normal to percussion Extrem Other: Decreased range of motion of left knee no soft tissue swelling erythema or warmth, reproducible tenderness of bilateral greater trochanteric areas and decreased range of motions of both hips Assessment and Plan Assessment & Plan (1) Hip pain, bilateral: Code(s): M25.551 - Pain in right hip; M25.552 - Pain in left hip Plan: Check x-rays of both hips and referred to orthopedic surgeon, patient requested [facility] (2) Knee pain, left: Code(s): M25.562 - Pain in left knee Plan: REFERRED TO ORTHOPEDICS Orders: Orders XR hip BI w PEL1V Today M25.551 - Pain in right hip, M25.552 - Pain in left hip Referrals Orthopedics Referral M25.551 - Pain in right hip, M25.552 - Pain in left hip, M25.562 - Pain in left knee Medications: Changed From furosemide TAKE 1 TABLET BY MOUTH DAILY 90 tabs 3RF To furosemide TAKE 1 TABLET IN THE AM, 20 MG IN PM Coding Level of Care Code Est Pt Level 3 (15515) Diagnoses Hip pain, bilateral M25.551; M25.552 Knee pain, left M25.562
== END 2023-08-14 14:42 | disposition home or self-care (01) ==
PROVIDERS: PCP Internal Medicine; Visit Provider Internal Medicine
DX: M25.551 Pain in right hip (principal); M25.552 Pain in left hip; M25.562 Pain in left knee
CPT/HCPCS: 99213

== ENCOUNTER 2023-09-15 14:33 | Outpatient (AMB) | payer MEDICARE, SELFPAY ==
[2023-09-15 14:42] VITALS: BP 102/56; PULSE 83; TEMP 36.6; O2SAT 95; BMI 29.0
--- NOTE | 2023-09-15 14:42 | MHC.OFFWIV ---
Intake Vital Signs 09/15/23 14:42 Height 5 ft 7 in Weight 185 lb BMI 29.0 BP 102/56 L Blood Pressure Location Rt brachial Position Sitting Pulse 83 Pulse Source Pulse Oximeter Temp 97.8 F Temp Source Temporal Artery Scan Pulse Oximetry (%) 95 Oxygen Delivery Method Room Air Intake Visit Reasons: EP, sinus congestion, body ache, headache (masked) Intake Note: PT is here today for sinus congestion, body ache, and headache Patient Tobacco Use Status: Former Tobacco user Quit Date: 2015 Allergies bee pollen [Bee Stings] Allergy (Mild, Verified 09/15/23 14:53) SWELLING ibuprofen [From Motrin] Allergy (Mild, Verified 09/15/23 14:53) RASH Do you need a note to return to daycare/school/sports/work: No HPI HPI Comments History of Present Illness Details This is a 73-year-old male who presents to the office today for sick visit. Patient complaining of persistent viral URI symptoms times 10 days. Patient states he tested positive for COVID-19 approximately 10 days ago. He states his symptoms slightly improved but then worsened again. Patient then tested negative for COVID-19 4 days ago. He reports persistent headaches, myalgias, dry cough, sore throat, and nasal/ sinus congestion. [facility] Medical History (Updated 08/14/23 @ 13:38 by Lyric Witt MD) Knee pain, left Memory loss Dehydration Umbilical hernia Obstructive sleep apnea Depression Hypertension Hyperlipidemia Diabetes DALI on CPAP Ischemic cardiomyopathy CAD (coronary artery disease) Surgical History (Updated 08/14/23 @ 13:24 by Lyric Witt MD) Hx of LASIK History of carpal tunnel release of both wrists History of cardiac cath History of total left knee replacement History of implantable cardiac defibrillator (ICD) History of colonoscopy Family History Father Lung cancer Diabetes mellitus HTN (hypertension) CVD (cardiovascular disease) Mother Stroke CVD (cardiovascular disease) History of heart attack Mental health disorder Brother No problems noted. Brother Alcoholic Sister No problems noted. Son No problems noted. Daughter No problems noted. Daughter No problems noted. Social History Household Members: Spouse Housing: House Are you a primary landcare facilitator to a significant other at home: No Do you presently have visiting nurse or other home services: No Alcohol intake: current Alcohol intake frequency: 0-2 drinks per day Alcohol type: beer Patient Tobacco Use Status: Former Tobacco user Quit Date: 2015 Tobacco use type: Cigarette e-Cigarette/Vaping Use: Never Used Current occupational status: retired Cognitive needs: No Hearing needs: Yes Vision needs: No Review of Systems Const All systems reviewed & are unremarkable except as noted in HPI and below Reports no additional complaints Eyes Reports no additional complaints ENT Reports no additional complaints Card Reports no additional complaints Resp Reports no additional complaints GI Reports no additional complaints Reports no additional complaints Musc Reports no additional complaints Skin/Breast Reports system reviewed and no additional complaints, except as documented Neuro Reports no additional complaints Psych Reports no additional complaints Endo Reports no additional complaints Derek/Lymph Reports no additional complaints Aller/Immun Reports no additional complaints Physical Exam Vital Signs: Last Vital Signs Temp 97.8 F 09/15/23 14:42 Pulse 83 09/15/23 14:42 BP 102/56 L 09/15/23 14:42 Pulse Ox 95 09/15/23 14:42 Oxygen Delivery Method Room Air 09/15/23 14:42 BMI result Body Mass Index 29.0 Const Other: Vital signs reviewed. Constitutional: Non-toxic appearing. No acute distress. Well-developed and well-nourished. HEENT: Normocephalic and atraumatic. Tympanic membranes without erythema, edema, or bulging bilaterally. External auditory canals without erythema or edema bilaterally. Moist mucous membranes. No pharyngeal erythema or exudates. Skin: Warm and dry. No rashes or lesions noted. Neck: Full and painless range of motion. No cervical lymphadenopathy. Cardio: Regular rate and rhythm. No murmurs, gallops, or rubs. No lower extremity edema. No JVD. Pulmonary: No respiratory distress. No accessory muscle usage. Clear to auscultation bilaterally without wheezing, crackles, or rhonchi. Gastrointestinal: Soft, nontender, and nondistended in all 4 quadrants. Musculoskeletal: Normal range of motion in joints throughout the body. No deformity or other signs of injury. Neuro: Alert and oriented x4. Cranial nerves 2-12 grossly intact. No focal deficits appreciated. Psych: Normal mood and affect. Assessment & Plan Assessment & Plan (1) Viral URI with cough: Code(s): J06.9 - Acute upper respiratory infection, unspecified Plan: this is a 73-year-old male presenting with persistent/ worsening viral URI symptoms x 10 days. his physical exam was benign, he is overall nontoxic appearing, in his vital signs are stable. History and physical most consistent with an acute viral upper respiratory tract infection. Given patient's report of double worsening symptoms, I will treat with p.o. azithromycin 500 mg today followed by 250 mg daily x4 days. I have sent another COVID/flu/ RSV test. Recommended symptomatic management including rest, increased fluids, advil/tylenol for pain/fever, and over the counter throat lozenges/decongestants. Patient advised to follow up here or go to the emergency room for worsening/persistent symptoms. Patient verbalized understanding and is agreeable with the plan. Orders: Orders SARS-CoV2/FLU/RSV Today R09.89 - Other specified symptoms and signs involving the circulatory and respiratory systems Medications: New azithromycin For 250 mg dose pack: take 500 mg today (day 1), then 250 mg for 4 days (days 2-5) PO 6 tabs 0RF Coding Level of Care Code Est Pt Level 3 (29836) Diagnoses Viral URI with cough J06.9
== END 2023-09-15 15:24 | disposition home or self-care (01) ==
PROVIDERS: PCP Internal Medicine; Visit Provider Physician Assistant Medical
DX: J06.9 Acute upper respiratory infection, unspecified (principal)
CPT/HCPCS: 99213

== ENCOUNTER 2023-09-15 16:50 | Outpatient (REF) | payer MEDICARE, SELFPAY ==
[2023-09-15 17:58] LABS: Influenza A PCR NEGATIVE (Negative); Influenza B PCR NEGATIVE (Negative); Resp Syncy Virus RNA Qual PCR NEGATIVE (Negative); SARS COV2 PCR INHOUSE NEGATIVE (Negative)
== END 2023-09-15 16:51 | disposition home or self-care (01) ==
LOC: HO.LNP 16:50
PROVIDERS: Visit Provider Physician Assistant Medical
DX: Z11.52 Encounter for screening for COVID-19 (principal); R09.89 Other specified symptoms and signs involving the circulatory and respiratory systems; Z20.822 Contact with and (suspected) exposure to COVID-19
CPT/HCPCS: 0241U

== ENCOUNTER 2023-10-05 09:34 | Outpatient (REF) | payer MEDICARE, SELFPAY ==
[2023-10-05 13:19] LABS: MANUAL DIFF FLAG NO
[2023-10-05 13:40] LABS: Basophils Percent Auto 0.3 % (0-2); Eosinophils Absolute Auto 0.2 X10*3/uL (0.0-0.4); Eosinophils Percent Auto 1.7 % (0-4); Hematocrit 40.7 % (42.0-52.0); Imm Gran Abs Auto 0.04 X10*3/uL (0.00-0.03); Imm Gran Pct Auto 0.4 % (0.0-0.4); Lymphocytes Absolute Auto 1.2 X10*3/uL (1.2-4.9); Lymphocytes Percent Auto 11.2 % (20-40); Mean Corpuscular HGB Conc 31.9 g/dl (31.0-36.0); Mean Corpuscular Hemoglobin 27.5 pg (27.0-33.0); Mean Platelet Volume 10.2 fL (9.4-12.4); Monocytes Absolute Auto 0.9 X10*3/uL (0.1-1.2); Monocytes Percent Auto 8.2 % (2-11); Neutrophils Absolute Auto 8.1 x10*3/uL (2.0-8.3); Neutrophils Percent Auto 78.2 % (45-73); Platelet Count 255 X10*3/uL (160-400); Red Blood Count 4.73 X10*6/uL (4.60-5.80); Red Cell Distribution Width 14.9 % (11.0-16.0); White Blood Count 10.4 X10*3/uL (4.8-10.8)
[2023-10-05 13:43] LABS: B Type Natriuretic Peptide 196 pg/mL (<100)
[2023-10-05 13:51] LABS: Anion Gap 11 (12-20); Blood Urea Nitrogen 30 mg/dL (9-16); Calcium 9.8 mg/dL (8.4-10.2); Carbon Dioxide 25 mmol/L (22-29); Chloride 107 mmol/L (96-108); Estimated Glomerular Filt Rate 52; Glucose Random 279 mg/dL (60-115); Potassium 4.7 mmol/L (3.3-5.1); Sodium 138 mmol/L (135-145)
== END 2023-10-05 09:35 | disposition home or self-care (01) ==
LOC: HO.HMGCLDS 09:34
PROVIDERS: PCP Internal Medicine; Visit Provider Nurse Practitioner
DX: I25.5 Ischemic cardiomyopathy (principal)
CPT/HCPCS: 36415; 80048; 83880; 85025

== ENCOUNTER 2023-10-26 11:05 | Outpatient (AMB) | payer MEDICARE, SELFPAY ==
[2023-10-26 11:16] VITALS: BP 114/62; PULSE 84; O2SAT 98; BMI 29.9
--- NOTE | 2023-10-26 11:16 | HO.NEPHOV_ITS ---
HPI HPI Comments History of Present Illness Details 73 yr old man with a h/o long standing HTN and DM and CHF with CKD Baseline creatinien is around 1.5 mg/dL h/o HOA with a peak cr of 1.9 h/o CHF with EF of 25-30 % , now on Entresto s/p CardioMEMS/Right heart catheterization in December 2022 PFS Medical History Knee pain, left Memory loss Dehydration Umbilical hernia Obstructive sleep apnea Depression Hypertension Hyperlipidemia Diabetes DALI on CPAP Ischemic cardiomyopathy CAD (coronary artery disease) Surgical History Hx of LASIK History of carpal tunnel release of both wrists History of cardiac cath History of total left knee replacement History of implantable cardiac defibrillator (ICD) History of colonoscopy Family History Father Lung cancer Diabetes mellitus HTN (hypertension) CVD (cardiovascular disease) Mother Stroke CVD (cardiovascular disease) History of heart attack Mental health disorder Brother No problems noted. Brother Alcoholic Sister No problems noted. Son No problems noted. Daughter No problems noted. Daughter No problems noted. Social History Household Members: Spouse Housing: House Are you a primary career development associate to a significant other at home: No Do you presently have visiting nurse or other home services: No Alcohol intake: current Alcohol intake frequency: 0-2 drinks per day Alcohol type: beer Patient Tobacco Use Status: Former Tobacco user Quit Date: 2015 Tobacco use type: Cigarette e-Cigarette/Vaping Use: Never Used Current occupational status: retired Cognitive needs: No Hearing needs: Yes Vision needs: No Vital Signs 10/26/23 11:16 Height 5 ft 7 in Weight 191 lb BMI 29.9 BP 114/62 Blood Pressure Location Rt brachial Position Sitting Pulse 84 Pulse Source Pulse Oximeter Pulse Oximetry (%) 98 Oxygen Delivery Method Room Air Physical Exam Vital Signs: Last Vital Signs Pulse 84 10/26/23 11:16 BP 114/62 10/26/23 11:16 Pulse Ox 98 10/26/23 11:16 Oxygen Delivery Method Room Air 10/26/23 11:16 BMI result Body Mass Index 29.9 Const General: comfortable Nutritional Appearance: well nourished Orientation/consciousness: patient oriented x3 HEENT Head: No normal to inspection Mouth: moist mucous membranes Eyes General: appearance normal, both eyes and all related structures Visual Espinoza: normal visual espinoza by confrontation Neck Neck: Yes supple and Yes no JVD Resp Effort & Inspection: normal respiratory effort and respiratory effort not decreased Auscultation: clear to auscultation bilaterally, no rales and rub present Cardio Jugular venous distension: no JVD Palpation: no palpable S3 and no palpable S4 Heart sounds: no rubs GI Inspection: Yes normal to inspection Palpation (GI): Soft to palpation and nontender Percussion: No Fluid wave present Auscultation: normal bowel sounds General: Yes no CVA tenderness Back/Spine/Pelvis Back: no CVA tenderness Skin General skin exam: no rashes or lesions noted Neuro General: patient oriented x3 Extrem General: Yes no pedal edema and No clubbing Assessment & Plan Assessment & Plan (1) CKD (chronic kidney disease) stage 3, GFR 30-59 ml/min: Code(s): N18.30 - Chronic kidney disease, stage 3 unspecified Plan CKD in a setting of HTN/DM and CHF NO significant proteinuria Creatinine has improved Goal is slow the progression of kidney disease Agree with FARXIGA Discussed low salt diet Avoid nephrotoxisn including NSAIDS BP is acceptable Goal A1C < 7% Orders: Orders Blood Urea Nitrogen 5 Months N18.30 - Chronic kidney disease, stage 3 unspecified Electrolytes 5 Months N18.30 - Chronic kidney disease, stage 3 unspecified Creatinine 5 Months N18.30 - Chronic kidney disease, stage 3 unspecified Calcium 5 Months N18.30 - Chronic kidney disease, stage 3 unspecified Coding Level of Care Code Est Pt Level 4 (84569) Diagnoses CKD (chronic kidney disease) stage 3, GFR 30-59 ml/min N18.30 Results Reviewed Nephrology Results: Hgb 13.0 g/dl (14.0-18.0) L 10/05/23 WBC 10.4 X10*3/uL (4.8-10.8) 10/05/23 Plt Count 255 X10*3/uL (160-400) 10/05/23 Sodium 138 mmol/L (135-145) 10/05/23 Potassium 4.7 mmol/L (3.3-5.1) 10/05/23 Chloride 107 mmol/L (96-108) 10/05/23 Carbon Dioxide 25 mmol/L (22-29) 10/05/23 BUN 30 mg/dL (9-16) H 10/05/23 Creatinine 1.34 mg/dL (0.5-1.4) 10/05/23 Calcium 9.8 mg/dL (8.4-10.2) 10/05/23 Urine Creatinine 155.87 mg/dL 06/20/23
== END 2023-10-26 11:43 | disposition home or self-care (01) ==
PROVIDERS: PCP Internal Medicine; Visit Provider Internal Medicine Hypertension Specialist
DX: N18.30 Chronic kidney disease, stage 3 unspecified (principal)
CPT/HCPCS: 99214

== ENCOUNTER → 2023-10-26 11:05 | Outpatient (BNVA) | payer MEDICARE, SELFPAY | PROVIDERS: PCP Internal Medicine; Visit Provider Internal Medicine Hypertension Specialist | DX: N18.30 Chronic kidney disease, stage 3 unspecified (principal) | CPT/HCPCS: 99212 ==

== ENCOUNTER 2023-11-24 14:57 | Outpatient (AMB) | payer MEDICARE, SELFPAY ==
[2023-11-24 14:59] VITALS: BP 128/70; PULSE 81; TEMP 36.1; O2SAT 97; BMI 29.6
--- NOTE | 2023-11-24 14:59 | MHC.OFFWIV ---
Intake Vital Signs 11/24/23 14:59 Height 5 ft 7 in Weight 189 lb BMI 29.6 BP 128/70 Blood Pressure Location Lt brachial Position Sitting Pulse 81 Pulse Source Pulse Oximeter Temp 97.0 F Temp Source Temporal Artery Scan Pulse Oximetry (%) 97 Oxygen Delivery Method Room Air Intake Visit Reasons: EP RT hand middle finger infected Intake Note: pt is here today for rt hand middle finger infection started 1 week ago Patient Tobacco Use Status: Former Tobacco user Quit Date: 2015 Allergies bee pollen [Bee Stings] Allergy (Mild, Verified 11/24/23 15:00) SWELLING ibuprofen [From Motrin] Allergy (Mild, Verified 11/24/23 15:00) RASH Do you need a note to return to daycare/school/sports/work: No HPI HPI Comments History of Present Illness Details 73 y/o male patient who presents to walk in clinic with c/o infection right middle finger x 1 week. 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 He is uptodate with Tdap. [facility] Medical History Knee pain, left Memory loss Dehydration Umbilical hernia Obstructive sleep apnea Depression Hypertension Hyperlipidemia Diabetes DALI on CPAP Ischemic cardiomyopathy CAD (coronary artery disease) Surgical History Hx of LASIK History of carpal tunnel release of both wrists History of cardiac cath History of total left knee replacement History of implantable cardiac defibrillator (ICD) History of colonoscopy Family History Father Lung cancer Diabetes mellitus HTN (hypertension) CVD (cardiovascular disease) Mother Stroke CVD (cardiovascular disease) History of heart attack Mental health disorder Brother No problems noted. Brother Alcoholic Sister No problems noted. Son No problems noted. Daughter No problems noted. Daughter No problems noted. Social History Household Members: Spouse Housing: House Are you a primary critical care nurse practitioner to a significant other at home: No Do you presently have visiting nurse or other home services: No Alcohol intake: current Alcohol intake frequency: 0-2 drinks per day Alcohol type: beer Patient Tobacco Use Status: Former Tobacco user Quit Date: 2015 Tobacco use type: Cigarette e-Cigarette/Vaping Use: Never Used Current occupational status: retired Cognitive needs: No Hearing needs: Yes Vision needs: No Review of Systems Const All systems reviewed & are unremarkable except as noted in HPI and below Physical Exam Vital Signs: Last Vital Signs Temp 97.0 F 11/24/23 14:59 Pulse 81 11/24/23 14:59 BP 128/70 11/24/23 14:59 Pulse Ox 97 11/24/23 14:59 Oxygen Delivery Method Room Air 11/24/23 14:59 BMI result Body Mass Index 29.6 Const General: no acute distress Orientation/consciousness: patient oriented x3 Skin Wounds: wounds noted (Right middle finger, infected wound) Neuro General: patient oriented x3 Extrem Right upper extremity: Extremity exam: right hand (Right middle finger with a small cut, infected, swollen and redness) Details: neuromotor exam normal, neurosensory exam normal, tenderness, normal ROM of fingers and swelling Location: of the 3rd digit Left upper extremity: normal to inspection and full ROM Assessment & Plan Assessment & Plan (1) Cellulitis of finger of right hand: Code(s): L03.011 - Cellulitis of right finger Plan: - Keep the area clean, wear gloves when working in garage - Up to date with Tdap (2015) - Acetaminophen for pain relief. Medications: New cephalexin 500 mg PO BID 7 days 14 caps 0RF L03.011 - Cellulitis of right finger Coding Level of Care Code Est Pt Level 3 (02491) Diagnoses Cellulitis of finger of right hand L03.011 Time Spent (min) 15
== END 2023-11-24 15:24 | disposition home or self-care (01) ==
PROVIDERS: PCP Internal Medicine; Visit Provider Nurse Practitioner Family
DX: L03.011 Cellulitis of right finger (principal)
CPT/HCPCS: 99213

== ENCOUNTER 2023-12-05 07:58 | Outpatient (AMB) | payer MEDICARE, SELFPAY ==
[2023-12-05 08:02] VITALS: BP 116/66; PULSE 73; O2SAT 95; BMI 29.0
--- NOTE | 2023-12-05 08:02 | MHC.PC.OV ---
Vital Signs 12/05/23 08:02 Height 5 ft 7 in Weight 185 lb BMI 29.0 BP 116/66 Blood Pressure Location Lt brachial Position Sitting Pulse 73 Pulse Source Pulse Oximeter Pulse Oximetry (%) 95 Oxygen Delivery Method Room Air Intake Visit Reasons: Pre op cataracts surgery 12/13/23 Intake Note: Pt is here today for a pre op visit. Pt is having cataract surgery on 12/13/23. Allergies bee pollen [Bee Stings] Allergy (Mild, Verified 12/05/23 08:21) SWELLING ibuprofen [From Motrin] Allergy (Mild, Verified 12/05/23 08:21) RASH Medication List - Last Reconciled 12/05/23 by Lyric Witt MD aspirin 81 mg PO DAILY blood sugar diagnostic (FreeStyle Lite Strips) test blood sugar twice a day bupropion HCl 150 mg PO DAILY carvedilol 25 mg (2 x 12.5 mg) PO BID 90 days cholecalciferol (vitamin D3) 25 mcg PO DAILY cyanocobalamin (vitamin B-12) 1,000 mcg PO DAILY dapagliflozin propanediol (Farxiga) 10 mg PO DAILY docusate sodium (Colace) 100 mg PO BID donepezil 5 mg PO DAILY doxycycline hyclate 100 mg PO BID dulaglutide (Trulicity) 1.5 mg (0.5 mL) subcut QWEEK fenofibrate nanocrystallized 145 mg PO BEDTIME flash glucose scanning reader (ViewpointsStyle Izabel 2 [place]) To test blood sugar flash glucose sensor (FreeStyle Izabel 2 Sensor kit) As directed to test blood sugar 4-6 times per day insulin degludec (Tresiba FlexTouch U-100 insulin) 46 UNITS subcutaneously bedtime; insulin lispro (Humalog KwikPen (U-100) Insulin) 10 units (0.1 mL) subcut TID lancets (FreeStyle Lancets) test blood sugar twice a day nitroglycerin (Nitrostat) 0.4 mg sublingual Q5M PRN pantoprazole 20 mg PO BEDTIME paroxetine HCl 30 mg PO BEDTIME prasugrel 10 mg PO DAILY ranolazine ER 500 mg PO BID rosuvastatin 40 mg PO DAILY sacubitril-valsartan 24-26 mg (Entresto) 1 tab PO BID sacubitril-valsartan 49-51 mg (Entresto) 1 tab PO BID Tobacco use date assessed: 12/05/23 Fall risk assessment: No Falls in past year Last assessed Fall Risk: 12/05/23 Dental Screening Dental Screen Date: 12/05/23 Did you have a dental visit in the last 12 months?: Yes Did you have a dental problem in the last 6 months where you did not have access to dental care?: No Was dental information given to patient?: Patient has dentist HPI Pre op cataracts surgery 12/13/23 HPI Details Patient presents for preop for cataract surgery. Type 2 diabetes cardiomyopathy hyperlipidemia hypertension are controlled on current medications. [facility] Medical History (Updated 12/05/23 @ 09:22 by Lyric Witt MD) Knee pain, left Memory loss Dehydration Umbilical hernia Obstructive sleep apnea Depression Hypertension Hyperlipidemia Diabetes DALI on CPAP Ischemic cardiomyopathy CAD (coronary artery disease) Surgical History Hx of LASIK History of carpal tunnel release of both wrists History of cardiac cath History of total left knee replacement History of implantable cardiac defibrillator (ICD) History of colonoscopy Family History Father Lung cancer Diabetes mellitus HTN (hypertension) CVD (cardiovascular disease) Mother Stroke CVD (cardiovascular disease) History of heart attack Mental health disorder Brother No problems noted. Brother Alcoholic Sister No problems noted. Son No problems noted. Daughter No problems noted. Daughter No problems noted. Social History Household Members: Spouse Housing: House Are you a primary healthcare insurance sales agent to a significant other at home: No Do you presently have visiting nurse or other home services: No Alcohol intake: current Alcohol intake frequency: 0-2 drinks per day Alcohol type: beer Patient Tobacco Use Status: Former Tobacco user Quit Date: 2015 Tobacco use type: Cigarette e-Cigarette/Vaping Use: Never Used Current occupational status: retired Cognitive needs: No Hearing needs: Yes Vision needs: No Questionnaire PHQ-9 Over the last 2 weeks, how often have you been bothered by any of the following problems? 1. Little interest or pleasure in doing things: not at all 2. Feeling down, depressed, or hopeless: not at all 3. Trouble falling or staying asleep, or sleeping too much: not at all 4. Feeling tired or having little energy: not at all 5. Poor appetite or overeating: not at all 6. Feeling bad about yourself - or that you are a failure or have let yourself or your family down: not at all 7. Trouble concentrating on things, such as reading the newspaper or watching television: not at all 8. Moving or speaking so slowly that other people could have noticed. Or the opposite - being so fidgety or restless that you have been moving around a lot more than usual: not at all 9. Thoughts that you would be better off or of hurting yourself in some way: not at all Total score: 0 Depression Screening Interpretation: Negative Depression Screening Done: Yes Source: Developed by Drs. Kian García, Carola Campos, Mamadou Pearson and colleagues, with an educational trenton from [employer]. Thrive Questionnaire Date Thrive assessed: 12/05/23 I am a: Patient What is your living situation today?: I have a steady place to live Within the past 12 months, did the food you bought not last and you didn't have the money to get more?: Never true Within the past 12 months, did you worry whether your food would run out before you got money to buy more?: Never true Do you have trouble paying for medicines?: No Do you have trouble getting transportation to medical appointments?: No Do you have trouble paying your heating and electricity bill?: No Do you have trouble taking care of your child, family member or friend?: No Do you have trouble with day-to-day activities such as bathing, preparing meals, shopping, managing finances, etc.?: No Are you currently unemployed and looking for a job?: No Are you interested in more education?: No Please select the resources that you would like help with: None Currently or been in a relationship where the following occur: no concerns reported THRIVE Score: 0 AUDIT C Alcohol Use Questionnaire (AUDIT-C) 1. How often do you have a drink containing alcohol?: 2-3 times a week 2. How many drinks containing alcohol do you have on a typical day when you are drinking?: 1 or 2 3. How often do you have six or more drinks on one occasion?: Never Total Score: 3 GHAZALA-7 AMB Questionnaire GHZAALA-7 Date GHAZALA - 7 assessed: 12/05/23 Feeling nervous, anxious, or on edge: 1 = Several days Not being able to stop or control worryin = Several days Worrying too much about different things: 1 = Several days Trouble relaxin = Not at all Being so restless that it is hard to sit still: 0 = Not at all Becoming easily annoyed or irritable: 3 = Nearly every day Feeling afraid as if something awful might happen: 0 = Not at all Total GHAZALA-7 score (0-4 normal; 5-9 mild; 10-14 moderate; 15-21 severe): 6 Source: Developed by Drs. Kian García, Carola Campos, Mamadou Pearson and colleagues, with an educational trenton from [employer]. Review of Systems Const All systems reviewed & are unremarkable except as noted in HPI and below Reports no additional complaints Eyes Reports no additional complaints ENT Reports no additional complaints Card Reports no additional complaints Resp Reports no additional complaints GI Reports no additional complaints Reports no additional complaints Physical exam (Primary Care) Vital Signs: Last Vital Signs Pulse 73 12/05/23 08:02 BP 116/66 12/05/23 08:02 Pulse Ox 95 12/05/23 08:02 Oxygen Delivery Method Room Air 12/05/23 08:02 BMI result Body Mass Index 29.0 Tobacco/Smoking Status: Tobacco use Status Tobacco use date assessed 12/05/23 12/05/23 08:24 Patient Tobacco Use Status Former Tobacco user 12/05/23 08:03 Tobacco use type Cigarette 12/05/23 08:03 e-Cigarette/Vaping Use Never Used 12/05/23 08:03 PHQ-9: PHQ-9 Score PHQ-9: Total score 0 12/05/23 08:24 Depression Screening Interpretation: Negative Thrive Assessment: Date of Thrive Assessment Date Thrive assessed 12/05/23 12/05/23 08:24 Currently or been in a relationship where the following occur: no concerns reported Const General: no acute distress HENMT Head: Yes normal to inspection Mouth: Normal oral and palatal mucosa present Resp Effort & Inspection: normal respiratory effort Auscultation: clear to auscultation bilaterally Cardio Heart sounds: S1 normal heart sound present and S2 normal heart sound present GI Inspection: Yes normal to inspection Palpation (GI): Soft to palpation Percussion: Yes normal to percussion Auscultation: normal bowel sounds Assessment and Plan Assessment & Plan (1) CKD (chronic kidney disease) stage 3, GFR 30-59 ml/min: Code(s): N18.30 - Chronic kidney disease, stage 3 unspecified Plan: Monitor renal function avoid nephrotoxins (2) Ischemic cardiomyopathy: Comment: f/u Cardiology at [facility], Echo 04/06 EF 30% Code(s): I25.5 - Ischemic cardiomyopathy Plan: Continue current medications follow-up with Cardiology (3) Diabetes: Code(s): E11.9 - Type 2 diabetes mellitus without complications Plan: ADA diet regular physical activity discussed with the patient. Continue current medications and check A1c tomorrow (4) Hypertension: Code(s): I10 - Essential (primary) hypertension Plan: Continue current medications (5) Cataract: Code(s): H26.9 - Unspecified cataract Plan: Patient is medically cleared for cataract surgery Orders: Orders Hemoglobin A1c Today E11.9 - Type 2 diabetes mellitus without complications, I10 - Essential (primary) hypertension, I25.5 - Ischemic cardiomyopathy, N18.30 - Chronic kidney disease, stage 3 unspecified Comprehensive [place]. Panel Fast Today E11.9 - Type 2 diabetes mellitus without complications, I10 - Essential (primary) hypertension, I25.5 - Ischemic cardiomyopathy, N18.30 - Chronic kidney disease, stage 3 unspecified Microalbumin, Random (w Creat) Today E11.9 - Type 2 diabetes mellitus without complications, I10 - Essential (primary) hypertension, I25.5 - Ischemic cardiomyopathy, N18.30 - Chronic kidney disease, stage 3 unspecified Lipid Panel Today E11.9 - Type 2 diabetes mellitus without complications, I10 - Essential (primary) hypertension, I25.5 - Ischemic cardiomyopathy, N18.30 - Chronic kidney disease, stage 3 unspecified Complete Blood Count Auto Diff Today E11.9 - Type 2 diabetes mellitus without complications, I10 - Essential (primary) hypertension, I25.5 - Ischemic cardiomyopathy, N18.30 - Chronic kidney disease, stage 3 unspecified Coding Level of Care Code Est Pt Level 4 (00286) Diagnoses CKD (chronic kidney disease) stage 3, GFR 30-59 ml/min N18.30 Ischemic cardiomyopathy I25.5 Diabetes E11.9 Hypertension I10 Cataract H26.9
== END 2023-12-05 09:23 | disposition home or self-care (01) ==
PROVIDERS: PCP Internal Medicine; Visit Provider Internal Medicine
DX: I12.9 Hypertensive chronic kidney disease with stage 1 through stage 4 chronic kidney disease, or unspecified chronic kidney disease (principal); N18.30 Chronic kidney disease, stage 3 unspecified; E11.22 Type 2 diabetes mellitus with diabetic chronic kidney disease; I25.5 Ischemic cardiomyopathy; H26.9 Unspecified cataract
CPT/HCPCS: 99214

== ENCOUNTER 2024-02-26 10:04 | Outpatient (AMB) | payer MEDICARE, SELFPAY ==
[2024-02-26 10:05] VITALS: BP 120/76; PULSE 87; O2SAT 97; BMI 30.4
--- NOTE | 2024-02-26 10:05 | MHC.PC.OV ---
Vital Signs 02/26/24 10:05 Height 5 ft 7 in Weight 194 lb BMI 30.4 BP 120/76 Blood Pressure Location Lt brachial Position Sitting Pulse 87 Pulse Source Pulse Oximeter Pulse Oximetry (%) 97 Oxygen Delivery Method Room Air Intake Visit Reasons: Issues with medication Intake Note: Pt is here today for a follow up visit. Allergies bee pollen [Bee Stings] Allergy (Mild, Verified 12/05/23 08:21) SWELLING ibuprofen [From Motrin] Allergy (Mild, Verified 12/05/23 08:21) RASH Tobacco use date assessed: 02/26/24 Dental Screening Dental Screen Date: 02/26/24 Did you have a dental visit in the last 12 months?: Yes Did you have a dental problem in the last 6 months where you did not have access to dental care?: No Was dental information given to patient?: Patient has dentist HPI Issues with medication HPI Details Patient presents for the follow-up of type 2 diabetes, heart failure with reduced ejection fraction,. chronic kidney disease stage 3 hyperlipidemia. Patient reports fluctuating blood glucose readings usually between 150-200 in the morning but occasionally with hypoglycemia around mid day because of no eating lunch or eating very light lunch. Patient has been taking glucose tablets when his blood glucose is below 100. He follows up with [facility] endocrinology but not regularly. Patient becoming more forgetful lately [facility] Medical History (Updated 02/26/24 @ 15:16 by Lyric Witt MD) Knee pain, left Memory loss Dehydration Umbilical hernia Obstructive sleep apnea Depression Hypertension Hyperlipidemia Diabetes DALI on CPAP Ischemic cardiomyopathy Surgical History Hx of LASIK History of carpal tunnel release of both wrists History of cardiac cath History of total left knee replacement History of implantable cardiac defibrillator (ICD) History of colonoscopy Family History Father Lung cancer Diabetes mellitus HTN (hypertension) CVD (cardiovascular disease) Mother Stroke CVD (cardiovascular disease) History of heart attack Mental health disorder Brother No problems noted. Brother Alcoholic Sister No problems noted. Son No problems noted. Daughter No problems noted. Daughter No problems noted. Social History Household Members: Spouse Housing: House Are you a primary reservoir caretaker to a significant other at home: No Do you presently have visiting nurse or other home services: No Alcohol intake: current Alcohol intake frequency: 0-2 drinks per day Alcohol type: beer Patient Tobacco Use Status: Former Tobacco user Quit Date: 2015 Tobacco use type: Cigarette e-Cigarette/Vaping Use: Never Used service: Yes Current occupational status: retired Cognitive needs: No Hearing needs: Yes Vision needs: No Questionnaire Thrive Questionnaire Date Thrive assessed: 12/05/23 GHAZALA-7 AMB Questionnaire GHAZALA-7 Date GHAZALA - 7 assessed: 12/05/23 Source: Developed by Drs. Kian García, Carola Campos, Mamadou Pearson and colleagues, with an educational trenton from [employer]. Review of Systems Const All systems reviewed & are unremarkable except as noted in HPI and below ENT Reports no additional complaints Card Reports no additional complaints Resp Reports no additional complaints GI Reports no additional complaints Reports no additional complaints Physical exam (Primary Care) Vital Signs: Last Vital Signs Pulse 87 02/26/24 10:05 BP 120/76 02/26/24 10:05 Pulse Ox 97 02/26/24 10:05 Oxygen Delivery Method Room Air 02/26/24 10:05 BMI result Body Mass Index 30.4 Tobacco/Smoking Status: Tobacco use Status Tobacco use date assessed 02/26/24 02/26/24 10:12 Patient Tobacco Use Status Former Tobacco user 02/26/24 10:12 Tobacco use type Cigarette 02/26/24 10:12 e-Cigarette/Vaping Use Never Used 02/26/24 10:12 Thrive Assessment: Date of Thrive Assessment Date Thrive assessed 12/05/23 02/26/24 10:12 Const General: no acute distress HENMT Throat: Yes posterior oropharynx normal Resp Effort & Inspection: normal respiratory effort Auscultation: clear to auscultation bilaterally Cardio Rhythm: regular rhythm Heart sounds: S1 normal heart sound present and S2 normal heart sound present GI Inspection: Yes normal to inspection Palpation (GI): Soft to palpation Percussion: Yes normal to percussion Auscultation: normal bowel sounds Assessment and Plan Assessment & Plan (1) HFrEF (heart failure with reduced ejection fraction): Comment: f/u with [facility] Cardiology Code(s): I50.20 - Unspecified systolic (congestive) heart failure Plan: Continue Entresto carvedilol and Farxiga, we will obtain records from Cardiology (2) CKD (chronic kidney disease) stage 3, GFR 30-59 ml/min: Code(s): N18.30 - Chronic kidney disease, stage 3 unspecified Plan: Monitor renal function avoid nephrotoxins (3) Diabetes: Code(s): E11.9 - Type 2 diabetes mellitus without complications Plan: ADA diet regular exercise discussed with the patient. Patient was advised to utilize Izabel sensor readings to adjust his diet. he will be referred to nurse navigator to discuss ADA diet and diabetes management, follow-up in 1 month (4) Ischemic cardiomyopathy: Comment: s/p NE 2007, ICD dual chamber, /u Cardiology at [facility], Echo 04/06 EF 30% Code(s): I25.5 - Ischemic cardiomyopathy Plan: See above (5) Hypertension: Code(s): I10 - Essential (primary) hypertension Plan: Continue current medications (6) Memory loss: Code(s): R41.3 - Other amnesia Plan: Continue donepezil (7) Hyperlipidemia: Code(s): E78.5 - Hyperlipidemia, unspecified Plan: Continue statin Coding Level of Care Code Est Pt Level 4 (20095) Diagnoses HFrEF (heart failure with reduced ejection fraction) I50.20 CKD (chronic kidney disease) stage 3, GFR 30-59 ml/min N18.30 Diabetes E11.9 Ischemic cardiomyopathy I25.5 Hypertension I10 Memory loss R41.3 Hyperlipidemia E78.5
== END 2024-02-26 11:00 | disposition home or self-care (01) ==
PROVIDERS: PCP Internal Medicine; Visit Provider Internal Medicine
DX: I12.9 Hypertensive chronic kidney disease with stage 1 through stage 4 chronic kidney disease, or unspecified chronic kidney disease (principal); I50.20 Unspecified systolic (congestive) heart failure; N18.30 Chronic kidney disease, stage 3 unspecified; E11.22 Type 2 diabetes mellitus with diabetic chronic kidney disease; I25.5 Ischemic cardiomyopathy; R41.3 Other amnesia; E78.5 Hyperlipidemia, unspecified
CPT/HCPCS: 99214

== ENCOUNTER 2024-02-26 11:03 | Outpatient (REF) | payer MEDICARE, SELFPAY ==
[2024-02-26 13:27] LABS: MANUAL DIFF FLAG NO
[2024-02-26 13:53] LABS: Basophils Absolute Auto 0.1 X10*3/uL (0.0-0.2); Basophils Percent Auto 1.1 % (0-2); Eosinophils Absolute Auto 0.2 X10*3/uL (0.0-0.4); Hematocrit 41.2 % (42.0-52.0); Hemoglobin 13.7 g/dl (14.0-18.0); Imm Gran Abs Auto 0.04 X10*3/uL (0.00-0.03); Imm Gran Pct Auto 0.5 % (0.0-0.4); Lymphocytes Absolute Auto 1.5 X10*3/uL (1.2-4.9); Lymphocytes Percent Auto 19.5 % (20-40); Mean Corpuscular HGB Conc 33.3 g/dl (31.0-36.0); Mean Corpuscular Hemoglobin 29.5 pg (27.0-33.0); Mean Corpuscular Volume 88.6 fL (80.0-98.0); Mean Platelet Volume 9.6 fL (9.4-12.4); Monocytes Absolute Auto 0.9 X10*3/uL (0.1-1.2); Neutrophils Absolute Auto 4.9 x10*3/uL (2.0-8.3); Neutrophils Percent Auto 63.9 % (45-73); Platelet Count 314 X10*3/uL (160-400); Red Blood Count 4.65 X10*6/uL (4.60-5.80); Red Cell Distribution Width 14.2 % (11.0-16.0); White Blood Count 7.6 X10*3/uL (4.8-10.8)
[2024-02-26 14:00] LABS: Estimated Average Glucose 154 mg/dL
[2024-02-26 14:28] LABS: Alanine Aminotransferase 14 U/L (0-40); Albumin Level 4.3 g/dL (3.5-5.0); Anion Gap 16 (12-20); Aspartate Amino Transferase 18 U/L (5-37); Bilirubin Total 0.4 mg/dL (0.0-1.0); Blood Urea Nitrogen 39 mg/dL (9-16); Calcium 10.3 mg/dL (8.4-10.2); Carbon Dioxide 28 mmol/L (22-29); Chloride 101 mmol/L (96-108); Cholesterol 246 mg/dL (<200); Estimated Glomerular Filt Rate 47; Glucose Fasting 231 mg/dL (60-99); HDL Cholesterol 33 mg/dL (>40); LDL Cholesterol Calculated 148 mg/dL (<100); Potassium 4.2 mmol/L (3.3-5.1); Sodium 141 mmol/L (135-145); Total Protein 7.7 g/dL (6.5-8.0); Triglycerides 329 mg/dL (<150)
[2024-02-26 14:33] LABS: Creatinine Urine 13.63 mg/dL; Microalbumin Urine < 5.0 mg/L
[2024-02-26 14:41] LABS: Alkaline Phosphatase 59 U/L (39-117)
== END 2024-02-26 11:04 | disposition home or self-care (01) ==
LOC: HO.HMGCLDS 11:03
PROVIDERS: PCP Internal Medicine; Visit Provider Internal Medicine
DX: I12.9 Hypertensive chronic kidney disease with stage 1 through stage 4 chronic kidney disease, or unspecified chronic kidney disease (principal); E11.22 Type 2 diabetes mellitus with diabetic chronic kidney disease; N18.30 Chronic kidney disease, stage 3 unspecified; I25.5 Ischemic cardiomyopathy
CPT/HCPCS: 36415; 80053; 80061; 82043; 82570; 83036; 85025

== ENCOUNTER 2024-04-03 16:19 | Outpatient (REF) | payer MEDICARE, SELFPAY ==
[2024-04-03 17:34] LABS: Basophils Percent Auto 0.6 % (0-2); Eosinophils Absolute Auto 0.2 X10*3/uL (0.0-0.4); Eosinophils Percent Auto 2.8 % (0-4); Hematocrit 39.2 % (42.0-52.0); Hemoglobin 13.2 g/dl (14.0-18.0); Imm Gran Abs Auto 0.02 X10*3/uL (0.00-0.03); Imm Gran Pct Auto 0.3 % (0.0-0.4); Lymphocytes Absolute Auto 1.3 X10*3/uL (1.2-4.9); Lymphocytes Percent Auto 19.8 % (20-40); MANUAL DIFF FLAG NO; Mean Corpuscular HGB Conc 33.7 g/dl (31.0-36.0); Mean Corpuscular Hemoglobin 29.4 pg (27.0-33.0); Mean Corpuscular Volume 87.3 fL (80.0-98.0); Mean Platelet Volume 9.5 fL (9.4-12.4); Monocytes Absolute Auto 0.9 X10*3/uL (0.1-1.2); Monocytes Percent Auto 13.4 % (2-11); Neutrophils Absolute Auto 4.2 x10*3/uL (2.0-8.3); Neutrophils Percent Auto 63.1 % (45-73); Platelet Count 236 X10*3/uL (160-400); Red Blood Count 4.49 X10*6/uL (4.60-5.80); Red Cell Distribution Width 14.2 % (11.0-16.0); White Blood Count 6.7 X10*3/uL (4.8-10.8)
[2024-04-03 17:57] LABS: Anion Gap 12 (12-20); Blood Urea Nitrogen 28 mg/dL (9-16); Calcium 10.1 mg/dL (8.4-10.2); Carbon Dioxide 25 mmol/L (22-29); Chloride 110 mmol/L (96-108); Estimated Glomerular Filt Rate 47; Glucose Random 113 mg/dL (60-115); Potassium 4.5 mmol/L (3.3-5.1); Sodium 142 mmol/L (135-145)
[2024-04-03 17:58] LABS: Blood Urea Nitrogen 28 mg/dL (9-16); Calcium 10.1 mg/dL (8.4-10.2)
== END 2024-04-03 16:20 | disposition home or self-care (01) ==
LOC: HO.LAB 16:19
PROVIDERS: Internal Medicine Hypertension Specialist; Absent Provider Otolaryngology; PCP Internal Medicine; Visit Provider Internal Medicine Cardiovascular Disease
DX: N18.30 Chronic kidney disease, stage 3 unspecified (principal); J34.89 Other specified disorders of nose and nasal sinuses; I25.5 Ischemic cardiomyopathy
CPT/HCPCS: 36415; 80048; 82310; 84520; 85025

== ENCOUNTER 2024-04-04 08:50 | Outpatient (REF) | payer MEDICARE, SELFPAY ==
[2024-04-04 11:43] LABS: Anion Gap 15 (12-20); Carbon Dioxide 25 mmol/L (22-29); Chloride 108 mmol/L (96-108); Estimated Glomerular Filt Rate 48; Potassium 4.6 mmol/L (3.3-5.1); Sodium 143 mmol/L (135-145)
== END 2024-04-04 08:51 | disposition home or self-care (01) ==
LOC: HO.HMGCLDS 08:50
PROVIDERS: PCP Internal Medicine; Visit Provider Internal Medicine Hypertension Specialist
DX: N18.30 Chronic kidney disease, stage 3 unspecified (principal)
CPT/HCPCS: 36415; 80051; 82565

== ENCOUNTER 2024-04-25 11:28 | Outpatient (AMB) | payer MEDICARE, SELFPAY ==
[2024-04-25 11:28] VITALS: BP 104/60; PULSE 80; O2SAT 96; BMI 30.5
--- NOTE | 2024-04-25 11:28 | HO.NEPHOV_ITS ---
Vital Signs 04/25/24 11:28 Height 5 ft 7 in Weight 195 lb BMI 30.5 BP 104/60 Blood Pressure Location Lt brachial Position Sitting Pulse 80 Pulse Source Pulse Oximeter Pulse Oximetry (%) 96 Oxygen Delivery Method Room Air Intake Visit Reasons: 6 mo f/u CKD/ LVM Note Keeper Required: No Accompanied by: Self / Same As Patient Allergies bee pollen [Bee Stings] Allergy (Mild, Verified 04/25/24 11:31) SWELLING ibuprofen [From Motrin] Allergy (Mild, Verified 04/25/24 11:31) RASH Medication List - Last Reconciled 04/25/24 by Nando Ryder MD aspirin 81 mg PO DAILY blood sugar diagnostic (FreeStyle Lite Strips) test blood sugar twice a day bupropion HCl SR 150 mg PO DAILY carvedilol 25 mg (2 x 12.5 mg) PO BID 90 days cholecalciferol (vitamin D3) 25 mcg PO DAILY cyanocobalamin (vitamin B-12) 1,000 mcg PO DAILY dapagliflozin propanediol (Farxiga) 10 mg PO DAILY docusate sodium (Colace) 100 mg PO BID donepezil 5 mg PO DAILY dulaglutide (Trulicity) 1.5 mg (0.5 mL) subcut QWEEK fenofibrate nanocrystallized 145 mg PO BEDTIME flash glucose scanning reader (aka-aki networksStyle Izabel 2 [place]) To test blood sugar flash glucose sensor (FreeStyle Izabel 2 Sensor kit) As directed to test blood sugar 4-6 times per day furosemide 40 mg PO DAILY insulin degludec (Tresiba FlexTouch U-100 insulin) 46 UNITS subcutaneously bedtime; insulin lispro (Humalog KwikPen (U-100) Insulin) 10 units (0.1 mL) subcut TID lancets (FreeStyle Lancets) test blood sugar twice a day nitroglycerin (Nitrostat) 0.4 mg sublingual Q5M PRN pantoprazole 20 mg PO BEDTIME paroxetine HCl 40 mg PO DAILY pen needle, diabetic (BD Ultra-Fine Short Pen Needle) 4 needles a day prasugrel 10 mg PO DAILY ranolazine ER 500 mg PO BID rosuvastatin 40 mg PO DAILY sacubitril-valsartan 49-51 mg (Entresto) 1 tab PO BID HPI Comments Details: 73 yr old man with a h/o long standing HTN and DM and CHF with CKD Baseline creatinien is around 1.5 mg/dL h/o HOA with a peak cr of 1.9 h/o CHF with EF of 25-30 % , now on Entresto s/p CardioMEMS/Right heart catheterization in December 2022 04/25/24 Waiting for shoulder surgery No change in respiratory status. [facility] Medical History (Updated 02/26/24 @ 15:27 by Lyric Witt MD) Knee pain, left Memory loss Dehydration Umbilical hernia Obstructive sleep apnea Depression Hypertension Hyperlipidemia Diabetes DALI on CPAP Ischemic cardiomyopathy Surgical History Hx of LASIK History of carpal tunnel release of both wrists History of cardiac cath History of total left knee replacement History of implantable cardiac defibrillator (ICD) History of colonoscopy Family History Father Lung cancer Diabetes mellitus HTN (hypertension) CVD (cardiovascular disease) Mother Stroke CVD (cardiovascular disease) History of heart attack Mental health disorder Brother No problems noted. Brother Alcoholic Sister No problems noted. Son No problems noted. Daughter No problems noted. Daughter No problems noted. Social History Household Members: Spouse Housing: House Are you a primary health care sanitary technician to a significant other at home: No Do you presently have visiting nurse or other home services: No Alcohol intake: current Alcohol intake frequency: 0-2 drinks per day Alcohol type: beer Patient Tobacco Use Status: Former Tobacco user Tobacco use type: Cigarette e-Cigarette/Vaping Use: Never Used service: Yes Current occupational status: retired Cognitive needs: No Hearing needs: Yes Vision needs: No Physical Exam Vital Signs: Last Vital Signs Pulse 80 04/25/24 11:28 BP 104/60 04/25/24 11:28 Pulse Ox 96 04/25/24 11:28 Oxygen Delivery Method Room Air 04/25/24 11:28 BMI result Body Mass Index 30.5 Const General: comfortable Nutritional Appearance: well nourished Orientation/consciousness: patient oriented x3 HEENT Head: No normal to inspection Mouth: moist mucous membranes Eyes General: appearance normal, both eyes and all related structures Visual Espinoza: normal visual espinoza by confrontation Neck Neck: Yes supple and Yes no JVD Resp Effort & Inspection: normal respiratory effort and respiratory effort not decreased Auscultation: clear to auscultation bilaterally and no rales Cardio Jugular venous distension: no JVD Palpation: no palpable S3 and no palpable S4 Heart sounds: no rubs GI Inspection: Yes normal to inspection Palpation (GI): Soft to palpation and nontender Percussion: No Fluid wave present Auscultation: normal bowel sounds General: Yes no CVA tenderness Back/Spine/Pelvis Back: no CVA tenderness Skin General skin exam: no rashes or lesions noted Neuro General: patient oriented x3 Extrem General: Yes no pedal edema and No clubbing Results Reviewed Nephrology Results: Hgb 13.2 g/dl (14.0-18.0) L 04/03/24 WBC 6.7 X10*3/uL (4.8-10.8) 04/03/24 Plt Count 236 X10*3/uL (160-400) 04/03/24 Sodium 143 mmol/L (135-145) 04/04/24 Potassium 4.6 mmol/L (3.3-5.1) 04/04/24 Chloride 108 mmol/L (96-108) 04/04/24 Carbon Dioxide 25 mmol/L (22-29) 04/04/24 BUN 28 mg/dL (9-16) H 04/03/24 Creatinine 1.43 mg/dL (0.5-1.4) H 04/04/24 Calcium 10.1 mg/dL (8.4-10.2) 04/03/24 Urine Creatinine 13.63 mg/dL 02/26/24 Assessment & Plan Assessment & Plan (1) CKD (chronic kidney disease) stage 3, GFR 30-59 ml/min: Code(s): N18.30 - Chronic kidney disease, stage 3 unspecified Category: Medical Plan CKD in a setting of HTN/DM and CHF NO significant proteinuria Creatinine has improved and currently stable at baseline Goal is slow the progression of kidney disease Agree with SHAYY Discussed low salt diet Avoid nephrotoxisn including NSAIDS BP is acceptable Goal A1C < 7% Coding Level of Care Code Est Pt Level 4 (36580) Diagnoses CKD (chronic kidney disease) stage 3, GFR 30-59 ml/min N18.30
== END 2024-04-25 11:41 | disposition home or self-care (01) ==
PROVIDERS: PCP Internal Medicine; Visit Provider Internal Medicine Hypertension Specialist
DX: N18.30 Chronic kidney disease, stage 3 unspecified (principal)
CPT/HCPCS: 99214

== ENCOUNTER → 2024-04-25 11:28 | Outpatient (BNVA) | payer MEDICARE, SELFPAY | PROVIDERS: PCP Internal Medicine; Visit Provider Internal Medicine Hypertension Specialist | DX: N18.30 Chronic kidney disease, stage 3 unspecified (principal) | CPT/HCPCS: 99212 ==

== ENCOUNTER 2024-04-30 12:41 | Outpatient (AMB) | payer MEDICARE, SELFPAY ==
--- NOTE | 2024-04-30 12:49 | MHC.PC.OV ---
Vital Signs 04/30/24 12:50 Height 5 ft 7 in Weight 197 lb BMI 30.9 BP 100/64 Blood Pressure Location Rt brachial Position Sitting Pulse 90 Pulse Source Pulse Oximeter Pulse Oximetry (%) 93 Oxygen Delivery Method Room Air Intake Visit Reasons: 1M F/U Meds Intake Note: Pt is here today for 1 months follow up visit. Allergies bee pollen [Bee Stings] Allergy (Mild, Verified 04/30/24 12:51) SWELLING ibuprofen [From Motrin] Allergy (Mild, Verified 04/30/24 12:51) RASH Medication List - Last Reconciled 04/30/24 by Lyric Witt MD aspirin 81 mg PO DAILY blood sugar diagnostic (FreeStyle Lite Strips) test blood sugar twice a day bupropion HCl SR 150 mg PO DAILY carvedilol 25 mg (2 x 12.5 mg) PO BID 90 days cholecalciferol (vitamin D3) 25 mcg PO DAILY cyanocobalamin (vitamin B-12) 1,000 mcg PO DAILY dapagliflozin propanediol (Farxiga) 10 mg PO DAILY docusate sodium (Colace) 100 mg PO BID donepezil 5 mg PO DAILY dulaglutide (Trulicity) 1.5 mg (0.5 mL) subcut QWEEK fenofibrate nanocrystallized 145 mg PO BEDTIME flash glucose scanning reader (JelasticStyle Izabel 2 [place]) To test blood sugar flash glucose sensor (FreeStyle Izabel 2 Sensor kit) As directed to test blood sugar 4-6 times per day furosemide 40 mg PO DAILY insulin degludec (Tresiba FlexTouch U-100 insulin) 46 UNITS subcutaneously bedtime; insulin lispro (Humalog KwikPen (U-100) Insulin) 10 units (0.1 mL) subcut TID lancets (FreeStyle Lancets) test blood sugar twice a day nitroglycerin (Nitrostat) 0.4 mg sublingual Q5M PRN pantoprazole 20 mg PO BEDTIME paroxetine HCl 40 mg PO DAILY pen needle, diabetic (BD Ultra-Fine Short Pen Needle) 4 needles a day prasugrel 10 mg PO DAILY ranolazine ER 500 mg PO BID rosuvastatin 40 mg PO DAILY sacubitril-valsartan 49-51 mg (Entresto) 1 tab PO BID Tobacco use date assessed: 04/30/24 Fall risk assessment: 2 + Falls in past year Last assessed Fall Risk: 04/30/24 Dental Screening Dental Screen Date: 02/26/24 HPI 1M F/U Meds HPI Details Pt presents for f/u IDDM, HTN, CHF. Pt was hospitalized for acute diarrhea and defibrillator discharged. Pt f/u with cardiology. Patient had a left rotator cuff injury and follows up with orthopedic surgeon. Patient reports fluctuating blood glucose low in the mid day an hour before dinner time. He has been taking 20 units of Humalog before each meal in addition to Tresiba, Trulicity and Farxiga. [facility] Medical History Knee pain, left Memory loss Dehydration Umbilical hernia Obstructive sleep apnea Depression Hypertension Hyperlipidemia Diabetes DALI on CPAP Ischemic cardiomyopathy Surgical History Hx of LASIK History of carpal tunnel release of both wrists History of cardiac cath History of total left knee replacement History of implantable cardiac defibrillator (ICD) History of colonoscopy Family History Father Lung cancer Diabetes mellitus HTN (hypertension) CVD (cardiovascular disease) Mother Stroke CVD (cardiovascular disease) History of heart attack Mental health disorder Brother No problems noted. Brother Alcoholic Sister No problems noted. Son No problems noted. Daughter No problems noted. Daughter No problems noted. Social History Household Members: Spouse Housing: House Are you a primary career and guidance counselor to a significant other at home: No Do you presently have visiting nurse or other home services: No Alcohol intake: current Alcohol intake frequency: 0-2 drinks per day Alcohol type: beer Patient Tobacco Use Status: Former Tobacco user Tobacco use type: Cigarette e-Cigarette/Vaping Use: Never Used service: Yes Current occupational status: retired Cognitive needs: No Hearing needs: Yes Vision needs: No Questionnaire PHQ-9 Over the last 2 weeks, how often have you been bothered by any of the following problems? 1. Little interest or pleasure in doing things: several days 2. Feeling down, depressed, or hopeless: several days 3. Trouble falling or staying asleep, or sleeping too much: several days 4. Feeling tired or having little energy: several days 5. Poor appetite or overeating: several days 6. Feeling bad about yourself - or that you are a failure or have let yourself or your family down: several days 7. Trouble concentrating on things, such as reading the newspaper or watching television: not at all 8. Moving or speaking so slowly that other people could have noticed. Or the opposite - being so fidgety or restless that you have been moving around a lot more than usual: not at all 9. Thoughts that you would be better off or of hurting yourself in some way: not at all Total score: 6 Depression Screening Interpretation: Negative Depression Screening Done: Yes Source: Developed by Drs. Kian García, Carola Campos, Mamadou Pearson and colleagues, with an educational trenton from [employer]. Thrive Questionnaire Date Thrive assessed: 12/05/23 I am a: Patient What is your living situation today?: I have a steady place to live Within the past 12 months, did the food you bought not last and you didn't have the money to get more?: Never true Within the past 12 months, did you worry whether your food would run out before you got money to buy more?: Never true Do you have trouble paying for medicines?: No Do you have trouble getting transportation to medical appointments?: No Do you have trouble paying your heating and electricity bill?: No Do you have trouble taking care of your child, family member or friend?: No Do you have trouble with day-to-day activities such as bathing, preparing meals, shopping, managing finances, etc.?: No Are you currently unemployed and looking for a job?: No Are you interested in more education?: No Please select the resources that you would like help with: Housing/[facility] Currently or been in a relationship where the following occur: No concerns reported THRIVE Score: 0 AUDIT C Alcohol Use Questionnaire (AUDIT-C) 1. How often do you have a drink containing alcohol?: 2-3 times a week 2. How many drinks containing alcohol do you have on a typical day when you are drinking?: 1 or 2 3. How often do you have six or more drinks on one occasion?: Less than monthly Total Score: 4 GHAZALA-7 AMB Questionnaire GHAZALA-7 Date GHAZALA - 7 assessed: 12/05/23 Feeling nervous, anxious, or on edge: 1 = Several days Not being able to stop or control worryin = Several days Worrying too much about different things: 1 = Several days Trouble relaxin = Several days Being so restless that it is hard to sit still: 0 = Not at all Becoming easily annoyed or irritable: 1 = Several days Feeling afraid as if something awful might happen: 0 = Not at all Total GHAZALA-7 score (0-4 normal; 5-9 mild; 10-14 moderate; 15-21 severe): 5 Source: Developed by Drs. Kian García, Carola Campos, Mamadou Pearson and colleagues, with an educational trenton from [employer]. Review of Systems Const All systems reviewed & are unremarkable except as noted in HPI and below Eyes Reports no additional complaints ENT Reports no additional complaints Card Reports no additional complaints Resp Reports no additional complaints GI Reports no additional complaints Reports no additional complaints Physical exam (Primary Care) Vital Signs: Last Vital Signs Pulse 90 04/30/24 12:50 BP 100/64 04/30/24 12:50 Pulse Ox 93 04/30/24 12:50 Oxygen Delivery Method Room Air 04/30/24 12:50 BMI result Body Mass Index 30.9 Tobacco/Smoking Status: Tobacco use Status Tobacco use date assessed 04/30/24 04/30/24 12:51 Patient Tobacco Use Status Former Tobacco user 04/30/24 12:51 Tobacco use type Cigarette 04/30/24 12:51 e-Cigarette/Vaping Use Never Used 04/30/24 12:51 PHQ-9: PHQ-9 Score PHQ-9: Total score 6 04/30/24 13:20 Depression Screening Interpretation: Negative Thrive Assessment: Date of Thrive Assessment Date Thrive assessed 12/05/23 04/30/24 12:51 Currently or been in a relationship where the following occur: No concerns reported Const General: no acute distress HENMT Head: Yes normal to inspection Mouth: Normal oral and palatal mucosa present Eyes General: appearance normal, both eyes and all related structures Neck Neck: Yes no lymphadenopathy and Yes supple Resp Effort & Inspection: normal respiratory effort Auscultation: clear to auscultation bilaterally Cardio Rhythm: regular rhythm Heart sounds: S1 normal heart sound present and S2 normal heart sound present GI Inspection: Yes normal to inspection Palpation (GI): Soft to palpation Percussion: Yes normal to percussion Auscultation: normal bowel sounds Assessment and Plan Assessment & Plan (1) Hyperlipidemia: Code(s): E78.5 - Hyperlipidemia, unspecified Plan: Continue statin (2) Hypertension: Code(s): I10 - Essential (primary) hypertension Plan: Continue current medications (3) CKD (chronic kidney disease) stage 3, GFR 30-59 ml/min: Comment: Patient follows up with Nephrology Code(s): N18.30 - Chronic kidney disease, stage 3 unspecified Plan: Monitor renal function follow-up with Nephrology (4) HFrEF (heart failure with reduced ejection fraction): Comment: f/u with [facility] Cardiology, Dr. Mcdowell, Echo 08/07 EF 20-25 %, 10/07 PCI for RCA stent restenosis Code(s): I50.20 - Unspecified systolic (congestive) heart failure Plan: Continue current medications follow-up with the Cardiology (5) Diabetes: Comment: Insulin-dependent Code(s): E11.9 - Type 2 diabetes mellitus without complications Plan: Patient was advised to decrease few Humalog before breakfast and lunch to 15 units and continue 20 units before dinner, he was advised to have a snack between lunch and dinner to avoid hypoglycemic episodes. ADA diet regular physical activity discussed with the patient. Follow-up in 3 months with a fasting labs before Orders: Orders Comprehensive Met. Panel 3 Months E78.5 - Hyperlipidemia, unspecified, I10 - Essential (primary) hypertension, I50.20 - Unspecified systolic (congestive) heart failure, N18.30 - Chronic kidney disease, stage 3 unspecified Hemoglobin A1c 3 Months E78.5 - Hyperlipidemia, unspecified, I10 - Essential (primary) hypertension, I50.20 - Unspecified systolic (congestive) heart failure, N18.30 - Chronic kidney disease, stage 3 unspecified Lipid Panel 3 Months E78.5 - Hyperlipidemia, unspecified, I10 - Essential (primary) hypertension, I50.20 - Unspecified systolic (congestive) heart failure, N18.30 - Chronic kidney disease, stage 3 unspecified Complete Blood Count Auto Diff 3 Months E78.5 - Hyperlipidemia, unspecified, I10 - Essential (primary) hypertension, I50.20 - Unspecified systolic (congestive) heart failure, N18.30 - Chronic kidney disease, stage 3 unspecified Microalbumin, Random (w Creat) 3 Months E78.5 - Hyperlipidemia, unspecified, I10 - Essential (primary) hypertension, I50.20 - Unspecified systolic (congestive) heart failure, N18.30 - Chronic kidney disease, stage 3 unspecified Medications: Refilled bupropion HCl SR 150 mg PO DAILY 180 tabs 3RF Coding Level of Care Code Est Pt Level 4 (35879) Diagnoses Hyperlipidemia E78.5 Hypertension I10 CKD (chronic kidney disease) stage 3, GFR 30-59 ml/min N18.30 HFrEF (heart failure with reduced ejection fraction) I50.20 Diabetes E11.9
[2024-04-30 12:50] VITALS: BP 100/64; PULSE 90; O2SAT 93; BMI 30.9
== END 2024-04-30 13:36 | disposition home or self-care (01) ==
PROVIDERS: PCP Internal Medicine; Visit Provider Internal Medicine
DX: I12.9 Hypertensive chronic kidney disease with stage 1 through stage 4 chronic kidney disease, or unspecified chronic kidney disease (principal); N18.30 Chronic kidney disease, stage 3 unspecified; I50.20 Unspecified systolic (congestive) heart failure; E11.22 Type 2 diabetes mellitus with diabetic chronic kidney disease; E78.5 Hyperlipidemia, unspecified
CPT/HCPCS: 99214

== ENCOUNTER 2024-05-29 14:02 | Outpatient (REF) | payer MEDICARE, SELFPAY ==
[2024-05-29 16:59] LABS: Anion Gap 12 (12-20); Blood Urea Nitrogen 36 mg/dL (9-16); Calcium 9.5 mg/dL (8.4-10.2); Carbon Dioxide 26 mmol/L (22-29); Chloride 108 mmol/L (96-108); Estimated Glomerular Filt Rate 32; Potassium 4.5 mmol/L (3.3-5.1); Sodium 141 mmol/L (135-145)
[2024-05-29 17:02] LABS: Vitamin D 25-OH Total 34.2 ng/mL (>30)
[2024-05-29 17:05] LABS: Creatinine Urine 37.94 mg/dL; Total Protein Urine Random < 7 mg/dL (<12)
[2024-05-29 17:11] LABS: Parathyroid Hormone Intact 36.2 pg/mL (8.7-77.1)
== END 2024-05-29 14:03 | disposition home or self-care (01) ==
LOC: HO.HMGCLDS 14:02
PROVIDERS: PCP Internal Medicine; Visit Provider Internal Medicine Nephrology
DX: I12.9 Hypertensive chronic kidney disease with stage 1 through stage 4 chronic kidney disease, or unspecified chronic kidney disease (principal); E11.22 Type 2 diabetes mellitus with diabetic chronic kidney disease; N18.32 Chronic kidney disease, stage 3b; E78.2 Mixed hyperlipidemia
CPT/HCPCS: 36415; 80051; 82306; 82310; 82565; 82570; 83970; 84156; 84520

== ENCOUNTER 2024-07-30 14:03 | Outpatient (AMB) | payer MEDICARE, SELFPAY ==
[2024-07-30 14:05] VITALS: BP 104/62; PULSE 67; O2SAT 96; BMI 27.4
--- NOTE | 2024-07-30 14:05 | A.OFFPC_ITS ---
Vital Signs 07/30/24 14:05 Height 5 ft 7 in Weight 175 lb BMI 27.4 BP 104/62 Blood Pressure Location Lt brachial Position Sitting Pulse 67 Pulse Source Pulse Oximeter Pulse Oximetry (%) 96 Oxygen Delivery Method Room Air Intake Visit Reasons: [facility] Intake Note: Pt is here today for a Hospital follow up visit. Allergies bee pollen [Bee Stings] Allergy (Mild, Verified 07/30/24 14:09) SWELLING ibuprofen [From Motrin] Allergy (Mild, Verified 07/30/24 14:09) RASH Medication List - Last Reconciled 07/30/24 by Lyric Witt MD amiodarone mg PO apixaban (Eliquis) 5 mg PO BID aspirin 81 mg PO DAILY blood sugar diagnostic (FreeStyle Lite Strips) test blood sugar twice a day bupropion HCl SR 150 mg PO DAILY cholecalciferol (vitamin D3) 25 mcg PO DAILY cyanocobalamin (vitamin B-12) 1,000 mcg PO DAILY dapagliflozin propanediol (Farxiga) 10 mg PO DAILY docusate sodium (Colace) 100 mg PO BID donepezil 5 mg PO DAILY fenofibrate nanocrystallized 145 mg PO BEDTIME flash glucose scanning reader (tabulateStyle Izabel 2 [place]) To test blood sugar flash glucose sensor (FreeStyle Izabel 2 Sensor kit) As directed to test blood sugar 4-6 times per day insulin lispro (Humalog KwikPen (U-100) Insulin) 10 units (0.1 mL) subcut TID lancets (FreeStyle Lancets) test blood sugar twice a day metoprolol succinate ER 100 mg PO DAILY nitroglycerin (Nitrostat) 0.4 mg sublingual Q5M PRN pantoprazole 20 mg PO BEDTIME paroxetine HCl 40 mg PO DAILY pen needle, diabetic (BD Ultra-Fine Short Pen Needle) 4 needles a day ranolazine ER 500 mg PO BID rosuvastatin 40 mg PO DAILY tamsulosin 0.4 mg PO DAILY Tobacco use date assessed: 04/30/24 Dental Screening Dental Screen Date: 02/26/24 [facility] HPI Details Patient presents for the follow-up of hospitalization at [facility] the last 2 months 3 times for CHF exacerbation, pneumonia, sepsis, worsening renal disease, recurrent falls and hypotension. He has been feeling better. Entresto and furosemide were discontinued because of severe hypotension. Patient reports episodes of lightheadedness when standing up but not recent falls. Type 2 diabetes has been controlled on insulin with a readings between 100-140. Patient is established with Cardiology and has a follow-up next week [facility] Medical History Knee pain, left Memory loss Dehydration Umbilical hernia Obstructive sleep apnea Depression Hypertension Hyperlipidemia Diabetes DALI on CPAP Ischemic cardiomyopathy Surgical History Hx of LASIK History of carpal tunnel release of both wrists History of cardiac cath History of total left knee replacement History of implantable cardiac defibrillator (ICD) History of colonoscopy Family History Father Lung cancer Diabetes mellitus HTN (hypertension) CVD (cardiovascular disease) Mother Stroke CVD (cardiovascular disease) History of heart attack Mental health disorder Brother No problems noted. Brother Alcoholic Sister No problems noted. Son No problems noted. Daughter No problems noted. Daughter No problems noted. Social History Household Members: Spouse Housing: House Are you a primary nonfarm animal caretaker to a significant other at home: No Do you presently have visiting nurse or other home services: No Alcohol intake: current Alcohol intake frequency: 0-2 drinks per day Alcohol type: beer Patient Tobacco Use Status: Former Tobacco user Tobacco use type: Cigarette e-Cigarette/Vaping Use: Never Used service: Yes Current occupational status: retired Cognitive needs: No Hearing needs: Yes Vision needs: No Questionnaire Thrive Questionnaire Date Thrive assessed: 04/30/24 I am a: Patient What is your living situation today?: I have a steady place to live Within the past 12 months, did the food you bought not last and you didn't have the money to get more?: Never true Within the past 12 months, did you worry whether your food would run out before you got money to buy more?: Never true Do you have trouble paying for medicines?: No Do you have trouble getting transportation to medical appointments?: No Do you have trouble paying your heating and electricity bill?: No Do you have trouble taking care of your child, family member or friend?: No Do you have trouble with day-to-day activities such as bathing, preparing meals, shopping, managing finances, etc.?: No Are you currently unemployed and looking for a job?: No Are you interested in more education?: No Please select the resources that you would like help with: None Currently or been in a relationship where the following occur: No concerns reported THRIVE Score: 0 GHAZALA-7 AMB Questionnaire GHAZALA-7 Date GHAZALA - 7 assessed: 12/05/23 Source: Developed by Drs. Kian García, Carola Campos, Mamadou Pearson and colleagues, with an educational trenton from [id number]. Review of Systems Const All systems reviewed & are unremarkable except as noted in HPI and below Eyes Reports no additional complaints ENT Reports no additional complaints Card Reports no additional complaints Resp Reports no additional complaints GI Reports no additional complaints Reports no additional complaints Physical exam (Primary Care) Vital Signs: Last Vital Signs Pulse 67 07/30/24 14:05 BP 104/62 07/30/24 14:05 Pulse Ox 96 07/30/24 14:05 Oxygen Delivery Method Room Air 07/30/24 14:05 BMI result Body Mass Index 27.4 Tobacco/Smoking Status: Tobacco use Status Tobacco use date assessed 04/30/24 07/30/24 14:05 Patient Tobacco Use Status Former Tobacco user 07/30/24 14:05 Tobacco use type Cigarette 07/30/24 14:05 e-Cigarette/Vaping Use Never Used 07/30/24 14:05 Thrive Assessment: Date of Thrive Assessment Date Thrive assessed 04/30/24 07/30/24 14:05 Currently or been in a relationship where the following occur: No concerns reported Const General: no acute distress Neck Neck: Yes supple Resp Effort & Inspection: normal respiratory effort Auscultation: clear to auscultation bilaterally Cardio Rhythm: regular rhythm Heart sounds: S1 normal heart sound present and S2 normal heart sound present GI Inspection: Yes normal to inspection Palpation (GI): Soft to palpation Percussion: Yes normal to percussion Coding Level of Care Code Est Pt Level 4 (69527) Diagnoses Diabetes E11.9 CKD (chronic kidney disease) stage 3, GFR 30-59 ml/min N18.30 HFrEF (heart failure with reduced ejection fraction) I50.20 Atrial fibrillation I48.91 Assessment & Plan Assessment & Plan (1) Diabetes: Comment: Insulin-dependent Code(s): E11.9 - Type 2 diabetes mellitus without complications Category: Medical Plan: Continue ADA diet current regiment of insulin (2) CKD (chronic kidney disease) stage 3, GFR 30-59 ml/min: Comment: Patient follows up with Nephrology Code(s): N18.30 - Chronic kidney disease, stage 3 unspecified Category: Medical Plan: Avoid nephrotoxins monitor renal function check comprehensive panel today (3) HFrEF (heart failure with reduced ejection fraction): Comment: f/u with [facility] Cardiology, Dr. Mcdowell, Echo 08/07 EF 20-25 %, 10/07 PCI for RCA stent restenosis Code(s): I50.20 - Unspecified systolic (congestive) heart failure Category: Medical Plan: Patient has persistent hypotension metoprolol will be decreased to 50 mg and patient will follow-up in 1 month. He is established with the Cardiology (4) Atrial fibrillation: Code(s): I48.91 - Unspecified atrial fibrillation Category: Medical Plan: Patient is amiodarone for rhythm control and Eliquis for anticoagulation Medications: New metoprolol succinate ER 50 mg PO DAILY
== END 2024-07-30 14:49 | disposition home or self-care (01) ==
PROVIDERS: PCP Internal Medicine; Visit Provider Internal Medicine
DX: E11.9 Type 2 diabetes mellitus without complications (principal); N18.30 Chronic kidney disease, stage 3 unspecified; I50.20 Unspecified systolic (congestive) heart failure; I48.91 Unspecified atrial fibrillation

== ENCOUNTER → 2024-07-30 14:03 | Outpatient (BNVA) | payer MEDICARE, SELFPAY | PROVIDERS: PCP Internal Medicine; Visit Provider Internal Medicine | DX: E11.9 Type 2 diabetes mellitus without complications (principal); N18.30 Chronic kidney disease, stage 3 unspecified; I50.20 Unspecified systolic (congestive) heart failure; I48.91 Unspecified atrial fibrillation | CPT/HCPCS: 99212 ==

== ENCOUNTER 2024-08-29 13:54 | Outpatient (AMB) | payer MEDICARE, SELFPAY ==
[2024-08-29 14:01] VITALS: BP 90/56; PULSE 74; O2SAT 96; BMI 28.5
--- NOTE | 2024-08-29 14:01 | MHC.PC.OV ---
Vital Signs 08/29/24 14:01 Height 5 ft 7 in Weight 182 lb BMI 28.5 BP 90/56 L Blood Pressure Location Lt brachial Position Sitting Pulse 74 Pulse Source Pulse Oximeter Pulse Oximetry (%) 96 Oxygen Delivery Method Room Air Intake Visit Reasons: 1 month follow up Allergies bee pollen [Bee Stings] Allergy (Mild, Verified 07/30/24 14:09) SWELLING ibuprofen [From Motrin] Allergy (Mild, Verified 07/30/24 14:09) RASH Tobacco use date assessed: 08/29/24 Dental Screening Dental Screen Date: 02/26/24 HPI 1 month follow up HPI Details Pt presents for f/u IDDM, heart failure with reduced ejection fraction, chronic kidney disease stage 4, paroxysmal AFib, dementia. [facility] Medical History (Updated 08/29/24 @ 15:30 by Lyric Witt MD) Knee pain, left Memory loss Dehydration Umbilical hernia Obstructive sleep apnea Depression Hyperlipidemia Diabetes DALI on CPAP Ischemic cardiomyopathy Surgical History Hx of LASIK History of carpal tunnel release of both wrists History of cardiac cath History of total left knee replacement History of implantable cardiac defibrillator (ICD) History of colonoscopy Family History Father Lung cancer Diabetes mellitus HTN (hypertension) CVD (cardiovascular disease) Mother Stroke CVD (cardiovascular disease) History of heart attack Mental health disorder Brother No problems noted. Brother Alcoholic Sister No problems noted. Son No problems noted. Daughter No problems noted. Daughter No problems noted. Social History Household Members: Spouse Housing: House Are you a primary primary care provider to a significant other at home: No Do you presently have visiting nurse or other home services: No Alcohol intake: current Alcohol intake frequency: 0-2 drinks per day Alcohol type: beer Patient Tobacco Use Status: Former Tobacco user Tobacco use type: Cigarette e-Cigarette/Vaping Use: Never Used service: Yes Current occupational status: retired Cognitive needs: No Hearing needs: Yes Vision needs: No Questionnaire Thrive Questionnaire Date Thrive assessed: 04/30/24 I am a: Patient What is your living situation today?: I have a steady place to live Within the past 12 months, did the food you bought not last and you didn't have the money to get more?: Never true Within the past 12 months, did you worry whether your food would run out before you got money to buy more?: Never true Do you have trouble paying for medicines?: No Do you have trouble getting transportation to medical appointments?: No Do you have trouble paying your heating and electricity bill?: No Do you have trouble taking care of your child, family member or friend?: No Do you have trouble with day-to-day activities such as bathing, preparing meals, shopping, managing finances, etc.?: No Are you currently unemployed and looking for a job?: No Are you interested in more education?: No Please select the resources that you would like help with: None Currently or been in a relationship where the following occur: No concerns reported THRIVE Score: 0 GHAZALA-7 AMB Questionnaire GHAZALA-7 Date GHAZALA - 7 assessed: 12/05/23 Source: Developed by Drs. Kian García, Carola Campos, Mamadou Pearson and colleagues, with an educational trenton from [employer]. Review of Systems Const All systems reviewed & are unremarkable except as noted in HPI and below ENT Reports no additional complaints Card Reports no additional complaints Resp Reports no additional complaints GI Reports no additional complaints Reports no additional complaints Physical exam (Primary Care) Vital Signs: Last Vital Signs Pulse 74 08/29/24 14:01 BP 90/56 L 08/29/24 14:01 Pulse Ox 96 08/29/24 14:01 Oxygen Delivery Method Room Air 08/29/24 14:01 BMI result Body Mass Index 28.5 Tobacco/Smoking Status: Tobacco use Status Tobacco use date assessed 08/29/24 08/29/24 14:31 Patient Tobacco Use Status Former Tobacco user 08/29/24 14:31 Tobacco use type Cigarette 08/29/24 14:01 e-Cigarette/Vaping Use Never Used 08/29/24 14:01 Thrive Assessment: Date of Thrive Assessment Date Thrive assessed 04/30/24 08/29/24 14:01 Currently or been in a relationship where the following occur: No concerns reported Const General: no acute distress Eyes General: appearance normal, both eyes and all related structures Resp Effort & Inspection: normal respiratory effort Auscultation: clear to auscultation bilaterally Cardio Rhythm: regular rhythm Heart sounds: S1 normal heart sound present and S2 normal heart sound present GI Inspection: Yes normal to inspection Palpation (GI): Soft to palpation Percussion: Yes normal to percussion Auscultation: normal bowel sounds Extrem General: Yes no clubbing, cyanosis or edema Coding Level of Care Code Est Pt Level 4 (15160) Complex EM visit Add On G2211 Diagnoses HFrEF (heart failure with reduced ejection fraction) I50.20 Atrial fibrillation I48.91 CKD (chronic kidney disease) stage 3, GFR 30-59 ml/min N18.30 Diabetes E11.9 Assessment & Plan Assessment & Plan (1) HFrEF (heart failure with reduced ejection fraction): Comment: f/u with [facility] Cardiology, Dr. Mcdowell, Echo 08/07 EF 20-25 %, 10/07 PCI for RCA stent restenosis Code(s): I50.20 - Unspecified systolic (congestive) heart failure Category: Medical Plan: Continue current medications follow-up with the Cardiology (2) Atrial fibrillation: Code(s): I48.91 - Unspecified atrial fibrillation Category: Medical Plan: Coagulated on Eliquis controlled on metoprolol (3) CKD (chronic kidney disease) stage 3, GFR 30-59 ml/min: Comment: Patient follows up with Nephrology Code(s): N18.30 - Chronic kidney disease, stage 3 unspecified Category: Medical Plan: Monitor renal function avoid nephrotoxins (4) Diabetes: Comment: Insulin-dependent, follow-up with endocrinology at [place] Code(s): E11.9 - Type 2 diabetes mellitus without complications Category: Medical Plan: ADA diet regular physical activity discussed with the patient. Continue Lantus and short-acting insulin follow-up with endocrinology at [place]
== END 2024-08-29 15:31 | disposition home or self-care (01) ==
PROVIDERS: PCP Internal Medicine; Visit Provider Internal Medicine
DX: I50.20 Unspecified systolic (congestive) heart failure (principal); I48.91 Unspecified atrial fibrillation; N18.30 Chronic kidney disease, stage 3 unspecified; E11.9 Type 2 diabetes mellitus without complications

== ENCOUNTER → 2024-08-29 13:54 | Outpatient (BNVA) | payer MEDICARE, SELFPAY | PROVIDERS: PCP Internal Medicine; Visit Provider Internal Medicine | DX: I50.20 Unspecified systolic (congestive) heart failure (principal); I48.91 Unspecified atrial fibrillation; E11.9 Type 2 diabetes mellitus without complications; N18.30 Chronic kidney disease, stage 3 unspecified | CPT/HCPCS: 99212 ==

== ENCOUNTER 2024-09-13 11:54 | Outpatient (AMB) | payer MEDICARE, SELFPAY ==
--- NOTE | 2024-09-13 11:58 | MHC.OFFWIV ---
Intake Vital Signs 09/13/24 12:00 Height 5 ft 7 in Weight 186 lb BMI 29.1 BP 92/50 L Blood Pressure Location Rt brachial Position Sitting Temp 97.8 F Temp Source Oral Intake Visit Reasons: EP Chest pain/SOB/recently in hosp due to this Intake Note: Patient here for chest tightness and SOB that has been present since monday morning. Patient Tobacco Use Status: Former Tobacco user Allergies bee pollen [Bee Stings] Allergy (Mild, Verified 09/13/24 12:01) SWELLING ibuprofen [From Motrin] Allergy (Mild, Verified 09/13/24 12:01) RASH Do you need a note to return to daycare/school/sports/work: No HPI EP Chest pain/SOB/recently in hosp due to this HPI Details 74-year-old male presents to the office for a sick visit. For the past week he has been complaining of increasing shortness of breath with retrosternal discomfort. Patient is getting short of breath after walking a few steps. No swelling in the feet but he has gained 4 lb in the past few days. Patient gives history of congestive heart failure and extensive coronary artery disease. He was admitted to the hospital a month ago with pneumonia. His symptoms had improved only to worsened in the past 5 days. No palpitations or diaphoresis. [facility] Medical History Knee pain, left Memory loss Dehydration Umbilical hernia Obstructive sleep apnea Depression Hyperlipidemia Diabetes DALI on CPAP Ischemic cardiomyopathy Surgical History Hx of LASIK History of carpal tunnel release of both wrists History of cardiac cath History of total left knee replacement History of implantable cardiac defibrillator (ICD) History of colonoscopy Family History Father Lung cancer Diabetes mellitus HTN (hypertension) CVD (cardiovascular disease) Mother Stroke CVD (cardiovascular disease) History of heart attack Mental health disorder Brother No problems noted. Brother Alcoholic Sister No problems noted. Son No problems noted. Daughter No problems noted. Daughter No problems noted. Social History Household Members: Spouse Housing: House Are you a primary hospice spiritual care coordinator to a significant other at home: No Do you presently have visiting nurse or other home services: No Alcohol intake: current Alcohol intake frequency: 0-2 drinks per day Alcohol type: beer Patient Tobacco Use Status: Former Tobacco user Tobacco use type: Cigarette e-Cigarette/Vaping Use: Never Used service: Yes Current occupational status: retired Cognitive needs: No Hearing needs: Yes Vision needs: No Physical Exam Vital Signs: Last Vital Signs Temp 97.8 F 09/13/24 12:00 BP 92/50 L 09/13/24 12:00 BMI result Body Mass Index 29.1 Const General: cooperative and healthy appearing Nutritional Appearance: well nourished Orientation/consciousness: patient oriented x3 Limitations: no limitations HEENT Head: Yes normal to inspection Eyes General: appearance normal, both eyes and all related structures Neck Neck: Yes normal visual inspection Chest Chest palpation & inspection: normal palpation of entire chest wall Resp Effort & Inspection: normal respiratory effort Neuro General: patient oriented x3 Extrem Other: trace pitting edema Assessment & Plan Assessment & Plan (1) Chest pain: Code(s): R07.9 - Chest pain, unspecified Plan: Patient was started at 3 L per minute oxygen. He had already taken 2 aspirins during the day prior to coming into the office. Clinically it appears patient's CHF is worsening. Underlying cardiac ischemia needs to be ruled out. EKG shows right bundle branch block consistent with his previous EKGs. Ambulance services were called and patient wanted to go to [facility] as per his choice. Orders: Orders AMB EKG-In Office Today R07.9 - Chest pain, unspecified Coding Level of Care Code Est Pt Level 4 (88566) Diagnoses Chest pain R07.9
[2024-09-13 12:00] VITALS: BP 92/50; TEMP 36.6; BMI 29.1
== END 2024-09-13 13:14 | disposition home or self-care (01) ==
PROVIDERS: PCP Internal Medicine; Visit Provider Internal Medicine
DX: R07.9 Chest pain, unspecified (principal)

== ENCOUNTER → 2024-09-13 11:54 | Outpatient (BNVA) | payer MEDICARE, SELFPAY | PROVIDERS: PCP Internal Medicine; Visit Provider Internal Medicine | DX: R07.9 Chest pain, unspecified (principal) | CPT/HCPCS: 93005; 99212 ==